=== PATIENT | female | born 1970 | race African-American/Black ===

== ENCOUNTER 2016-11-17 22:06 | Emergency (ER) | payer OTHER ==
[~2016-11-17] VITALS: Ht 165.1 cm; Wt 133.8 kg
[~2016-11-17 22:06] MED LIST: FUROSEMIDE20 M1 ORAL; NKM; TRUFORM COMPRE1 EACH MC
[2016-11-17 22:20] VITALS: BP 128/72
[2016-11-17 23:02] LABS: BASOPHILS % (AUTO) 1.5 % (0.0-2.0); EOSINOPHILS % (AUTO) 3.3 % (0.0-3.0); LYMPHOCYTES % (AUTO) 38.9 % (20.0-45.0); MEAN CORPUSCULAR HEMOGLOBIN 34.5 PG (27.0-31.0); MEAN CORPUSCULAR VOLUME 96 FL (80-99); MEAN PLATELET VOLUME 6.9 FL (6.5-10.1); MONOCYTES % (AUTO) 3.4 % (1.0-10.0); NEUTROPHILS % (AUTO) 53.1 % (45.0-75.0); PLATELET COUNT 313 K/UL (150-450); RED BLOOD COUNT 3.98 M/UL (4.20-5.40); WHITE BLOOD COUNT 7.7 K/UL (4.8-10.8)
[2016-11-17 23:03] LABS: APPEARANCE,URINE SLIGHTLY CLOUDY; KETONES,URINE NEGATIVE (NEGATIVE); LEUKOCYTE ESTERASE ,URINE 2+ (NEGATIVE); NITRITE,URINE NEGATIVE (NEGATIVE); PH,URINE 6 (4.5-8.0); PROTEIN,URINE 2+ (NEGATIVE); UROBILINOGEN,URINE NORMAL MG/DL (0.0-1.0)
[2016-11-17 23:10] LABS: ALANINE AMINOTRANSFERASE 10 U/L (3-33); ANION GAP 17 (5-15); ASPARTATE AMINO TRANSFERASE 16 U/L (5-40); CALCIUM 8.9 mg/dL (8.6-10.2); CARBON DIOXIDE 23 mEQ/L (20-30); CHLORIDE 96 mEQ/L (98-107); CREATININE 0.8 mg/dL (0.5-0.9); GLOMERULAR FILTRATION RATE > 60 mL/min (>60); HEMOLYSIS 9; LIPASE 28 U/L (< 60); POTASSIUM 3.5 mEQ/L (3.4-4.9); SODIUM 136 mEQ/L (135-145); TOTAL PROTEIN 7.3 g/dL (6.6-8.7)
[2016-11-17 23:19] LABS: RBC,URINE TNTC /HPF (0 - 2)
[2016-11-17 23:20] LABS: BACTERIA,URINE FEW /HPF; SQUAMOUS EPITHELIAL CELL,UR FEW /LPF (NONE/OCC); TRICHOMONAS,URINE FEW /HPF
[2016-11-18 00:20] VITALS: BP 131/75
[2016-11-18 01:56] LABS: TROPONIN I < 0.30 ng/mL (<=0.30)
--- NOTE | 2016-11-18 02:11 | Emergency Room Report ---
History of Present Illness General Chief Complaint: Abdominal Pain Source: Patient Present Illness HPI [id number] with "months" of bilateral lower extremity swelling. No assoc fever/ chills, redness, rash. Also c/o dysuria. No known CKD or history of CHF. Allergies: Coded Allergies: MORPHINE (Verified Allergy, Unknown, 03/05/16) PENICILLINS (Unverified Allergy, Unknown, 03/05/16) Uncoded Allergies: PENICILLIN (Allergy, Intermediate, 02/15/16) Patient History Past Medical History: none Past Surgical History: none Pertinent Family History: none Social History: Denies: alcohol use, drug use, smoking Last Menstrual Period: 11/17/16 Now: No : 5 Para: 4 Immunizations: UTD Reviewed Nursing Documentation: PMH: Agreed, PSxH: Agreed Nursing Documentation-PMH Hx Asthma: Yes Review of Systems All Other Systems: negative except mentioned in HPI Physical Exam Vital Signs Date Time Temp Pulse Resp B/P Pulse Ox O2 Delivery O2 Flow Rate FiO2 11/17/16 22:16 98.8 87 18 156/96 97 Room Air Sp02 EP Interpretation: reviewed, abnormal General Appearance: normal inspection, well appearing, no apparent distress, alert, GCS 15, non-toxic, obese Head: normocephalic Eyes: bilateral eye EOMI, bilateral eye PERRL ENT: normal ENT inspection, hearing grossly normal, normal voice Neck: normal inspection, full range of motion, supple, no bony tend Respiratory: normal inspection, lungs clear, normal breath sounds, no rhonchi, no respiratory distress, no retraction, no accessory muscle use, no wheezing, speaking full sentences Cardiovascular #1: regular rate, rhythm, no edema Gastrointestinal: normal inspection, normal bowel sounds, non tender, soft, no guarding, no hernia Genitourinary: no CVA tenderness Musculoskeletal: normal inspection, back normal, normal range of motion, Tanya' s Sign negative, other - bilateral lower extremities: Non-pitting edema. No erythema. Bilateral calf swelling Neurologic: normal inspection, alert, oriented x3, responsive, quilt maker III-XII nml as tested, motor strength/tone normal, speech normal Psychiatric: normal inspection, judgement/insight normal, mood/affect normal Skin: normal inspection, normal color, no rash Lymphatic: normal inspection Medical Decision Making Diagnostic Impression: Primary Impression: Trichomonas infection Additional Impression: Localized swelling of both lower legs ER Course Labs: No leuks. H&h stable. No CKD. BNP and troponin 0. D-dimer 733 CXR: no congestion or PNA Bilateral doppler sono: No DVT. Left distal SFU unable to be compressed d/t pain but no echogenicity seen in vessel per tech. Incidental left sided Bakers cyst. Bilateral leg pain - Unlikely peripheral edema from CHF as BNP normal, kidney function normal. Not pitting. - No sign of cellulitis - No DVT - Possibly contributing is patient's obesity. Encouraged weight loss, healthy eating, exercise Trichomonas - Rx given for patient and for Discharged with recommended PMD followup Copy of labs provided Chest X-Ray Diagnostic Results EP Interpretation: Yes Findings: no consolidation, no effusion, no pneumothorax, no acute cardiopulmonary disease Number of Views: 1 Last Vital Signs Date Time Temp Pulse Resp B/P Pulse Ox O2 Delivery O2 Flow Rate FiO2 11/17/16 22:20 98.8 86 23 128/72 99 Room Air Status: improved Disposition: HOME, SELF-CARE Scripts Methocarbamol* (ROBAXIN-750*) 750 Mg Tablet 750 MG PO TID for For Pain, #30 TAB 0 Refills Prov: BIA KRUSE M.D. 11/18/16 Metronidazole* (FLAGYL*) 500 Mg Tablet 500 MG ORAL BID for 7 Days, #14 TAB Prov: BIA KRSUE M.D. 11/18/16 Metronidazole* (FLAGYL*) 500 Mg Tablet 500 MG ORAL BID for 7 Days, #14 TAB Prov: BIA KRUSE M.D. 11/18/16 Referrals: NOT CHOSEN JAIME/,REFERRING (PCP) BIA KRUSE M.D. Nov 18, 2016 02:11
[2016-11-18 02:12] LABS: CKMB < 1.5 ng/mL (< 3.8)
[2016-11-18 02:20] VITALS: BP 129/74
[2016-11-18] MEDS ORDERED: ROBAXIN-750750 MG PO (03:54)
[2016-11-18] MEDS ORDERED: FLAGYL500 MG ORAL (03:54)
[2016-11-18 04:14] VITALS: BP 133/73
[2016-11-18 04:15] VITALS: BP 133/73
--- NOTE | 2016-11-18 10:49 | Diagnostic Imaging Report ---
Indication: SOB Technique: One view of the chest Comparison: none Findings: Body habitus limits evaluation. The heart is borderline enlarged. The lungs and pleural spaces are probably clear. Impression: Borderline cardiomegaly. No definite acute process
--- NOTE | 2016-11-25 23:23 | Diagnostic Imaging Report ---
APPROVED REPORT CPT Code: 20658 Present Symptoms Comments: Pain Technically difficult study due to patient body habitus. Thigh area. BILATERAL: Imaging reveals a patent deep venous system bilaterally. There is no evidence of thrombus within the common femoral, right superficial femoral, popliteal or tibial segments. The greater saphenous veins are also within normal limits. Doppler indicates normal spontaneous flow within these segments. Distal left superficial femoral vein not well visualized. Incidental finding: Enlarged bakers cyst noted at the left popliteal vein level, measuring (4.5 cm x 2.7 cm).
== END 2016-11-18 04:15 | disposition home or self-care (01) ==
LOC: EMR 22:35
DX: A59.9 Trichomoniasis, unspecified (principal); M79.89 Other specified soft tissue disorders; J45.909 Unspecified asthma, uncomplicated; Z88.0 Allergy status to penicillin; Z88.6 Allergy status to analgesic agent
CPT/HCPCS: 36415; 71010; 80053; 81003; 81025; 82550; 82553; 83690; 83880; 84484; 85025; 85379; 93970; 99284

== ENCOUNTER 2017-02-22 10:29 | Emergency (ER) | payer MEDICAID, OTHER ==
[~2017-02-22] VITALS: Ht 165.1 cm; Wt 133.8 kg
[~2017-02-22 10:29] MED LIST changes: +FLAGYL500 MG ORAL; +ROBAXIN-750750 MG PO
[2017-02-22 11:32] LABS: BASOPHILS % (AUTO) 1.1 % (0.0-2.0); EOSINOPHILS % (AUTO) 4.9 % (0.0-3.0); LYMPHOCYTES % (AUTO) 35.3 % (20.0-45.0); MEAN CORPUSCULAR HEMOGLOBIN 31.5 PG (27.0-31.0); MEAN CORPUSCULAR HGB CONC 32.8 G/DL (32.0-36.0); MEAN CORPUSCULAR VOLUME 96 FL (80-99); MEAN PLATELET VOLUME 7.2 FL (6.5-10.1); MONOCYTES % (AUTO) 2.6 % (1.0-10.0); NEUTROPHILS % (AUTO) 56.1 % (45.0-75.0); PLATELET COUNT 369 K/UL (150-450); RED BLOOD COUNT 4.21 M/UL (4.20-5.40); RED CELL DISTRIBUTION WIDTH 11.5 % (11.6-14.8); WHITE BLOOD COUNT 6.3 K/UL (4.8-10.8)
[2017-02-22 11:37] LABS: INR 0.9 (0.9-1.1); PROTHROMBIN TIME 9.6 SEC (9.30-11.50)
[2017-02-22 11:43] LABS: ALANINE AMINOTRANSFERASE 10 U/L (3-33); ANION GAP 14 (5-15); ASPARTATE AMINO TRANSFERASE 14 U/L (5-40); CARBON DIOXIDE 24 mEQ/L (20-30); CHLORIDE 101 mEQ/L (98-107); CREATININE 0.7 mg/dL (0.5-0.9); GLOMERULAR FILTRATION RATE > 60 mL/min (>60); HEMOLYSIS 6; POTASSIUM 3.8 mEQ/L (3.4-4.9); SODIUM 139 mEQ/L (135-145); TOTAL PROTEIN 7.3 g/dL (6.6-8.7)
[2017-02-22 11:52] VITALS: BP 133/75
[2017-02-22 11:54] LABS: TROPONIN I < 0.30 ng/mL (<=0.30)
[2017-02-22 12:03] LABS: CKMB 1.6 ng/mL (< 3.8)
--- NOTE | 2017-02-22 12:41 | Diagnostic Imaging Report ---
Indication: Chest pain Comparison: 11/18/16 A single view chest radiograph was obtained. Findings: Cardiomediastinal appearance is within normal limits for age. Pulmonary vascularity is appropriate. The diaphragmatic contour is smooth and costophrenic angles are sharp. No pleural effusions are identified. The bones are unremarkable. Impression: No acute findings
[2017-02-22 12:58] VITALS: BP 141/79
--- NOTE | 2017-02-22 13:04 | Emergency Room Report ---
History of Present Illness General Chief Complaint: Chest Pain Source: Patient Present Illness HPI This patient presents with bilateral lower extremity swelling and chest pressure. Patient states that she has had lower extremity swelling for the past few weeks. She states it is progressively worsened. She does have a history of this. She states it waxes and wanes in severity. She has never been evaluated by a physician for this. She denies cough or congestion. She denies fever or chills. She denies abdominal pain. She has no other complaints. Allergies: Coded Allergies: MORPHINE (Verified Allergy, Unknown, 03/05/16) PENICILLINS (Unverified Allergy, Unknown, 03/05/16) Uncoded Allergies: PENICILLIN (Allergy, Intermediate, 02/15/16) Patient History Past Medical History: see triage record, asthma Social History: Denies: alcohol use, drug use, smoking Last Menstrual Period: 01/28/17 Reviewed Nursing Documentation: PMH: Agreed, PSxH: Agreed Nursing Documentation-PMH Past Medical History: No Stated History Hx Asthma: Yes Review of Systems All Other Systems: negative except mentioned in HPI Physical Exam Vital Signs Date Time Temp Pulse Resp B/P Pulse Ox O2 Delivery O2 Flow Rate FiO2 02/22/17 10:39 98.2 93 16 171/101 95 Room Air Sp02 EP Interpretation: reviewed, normal General Appearance: no apparent distress, alert, GCS 15, non-toxic Head: normocephalic, atraumatic Eyes: bilateral eye PERRL, bilateral eye normal inspection ENT: hearing grossly normal, normal pharynx, no angioedema, normal voice Neck: full range of motion, supple/symm/no masses Respiratory: chest non-tender, lungs clear, normal breath sounds, speaking full sentences Cardiovascular #1: regular rate, rhythm, no edema Gastrointestinal: normal bowel sounds, non tender, soft, non-distended, no guarding, no rebound Rectal: deferred Musculoskeletal: back normal, gait/station normal, normal range of motion, non- tender Neurologic: alert, oriented x3, responsive, motor strength/tone normal, sensory intact, speech normal Psychiatric: judgement/insight normal, memory normal, mood/affect normal, no suicidal/homicidal ideation Skin: normal color, no rash, warm/dry, well hydrated, other - BLE 2+ edema Medical Decision Making Diagnostic Impression: Primary Impression: Lymphedema ER Course This patient presents with lymphedema. There is evidence of cellulitis and I have low suspicion for bilateral lower extremity DVTs. She has had ongoing symptoms for many weeks. I will go ahead and set this patient on a diuretic. She is also instructed to see her primary care physician for further evaluation and treatment of her chronic lymphedema. This patient has nonspecific chest pressure that has been ongoing. Given the length of symptoms, this workup is very reassuring with negative cardiac enzymes , normal EKG, and normal chest x-ray. The patient is low risk and his symptoms are atypical for acute coronary syndrome. I have very low suspicion for PE, aortic dissection or pneumothorax based on history/physical, laboratory and radiologic workup. The patient was given close return precautions and followup instructions. Labs Test 02/22/17 11:10 White Blood Count 6.3 K/UL (4.8-10.8) Red Blood Count 4.21 M/UL (4.20-5.40) Hemoglobin 13.3 G/DL (12.0-16.0) Hematocrit 40.4 % (37.0-47.0) Mean Corpuscular Volume 96 FL (80-99) Mean Corpuscular Hemoglobin 31.5 PG (27.0-31.0) Mean Corpuscular Hemoglobin Concent 32.8 G/DL (32.0-36.0) Red Cell Distribution Width 11.5 % (11.6-14.8) Platelet Count 369 K/UL (150-450) Mean Platelet Volume 7.2 FL (6.5-10.1) Neutrophils (%) (Auto) 56.1 % (45.0-75.0) Lymphocytes (%) (Auto) 35.3 % (20.0-45.0) Monocytes (%) (Auto) 2.6 % (1.0-10.0) Eosinophils (%) (Auto) 4.9 % (0.0-3.0) Basophils (%) (Auto) 1.1 % (0.0-2.0) Prothrombin Time 9.6 SEC (9.30-11.50) Prothromb Time International Ratio 0.9 (0.9-1.1) Activated Partial Thromboplast Time 27 SEC (23-33) Sodium Level 139 mEQ/L (135-145) Potassium Level 3.8 mEQ/L (3.4-4.9) Chloride Level 101 mEQ/L (98-107) Carbon Dioxide Level 24 mEQ/L (20-30) Anion Gap 14 (5-15) Blood Urea Nitrogen 11 mg/dL (7-23) Creatinine 0.7 mg/dL (0.5-0.9) Estimat Glomerular Filtration Rate > 60 mL/min (>60) Glucose Level 165 mg/dL (74-106) Calcium Level 9.0 mg/dL (8.6-10.2) Total Bilirubin 0.3 mg/dL (0.0-1.2) Aspartate Amino Transf (AST/SGOT) 14 U/L (5-40) Alanine Aminotransferase (ALT/SGPT) 10 U/L (3-33) Alkaline Phosphatase 101 U/L (35-104) Total Creatine Kinase 98 U/L (26-140) Creatine Kinase MB 1.6 ng/mL (< 3.8) Creatine Kinase MB Relative Index 1.6 Troponin I < 0.30 ng/mL (<=0.30) Pro-B-Type Natriuretic Peptide 54 pg/mL (0-125) Total Protein 7.3 g/dL (6.6-8.7) Albumin 3.8 g/dL (3.5-5.2) Globulin 3.5 g/dL Albumin/Globulin Ratio 1.0 (1.0-2.7) EKG Diagnostic Results Rate: normal Rhythm: NSR ST Segments: no acute changes Rhythm Strip Diag. Results EP Interpretation: yes Rate: 80's Rhythm: NSR, no PVC's, no ectopy Chest X-Ray Diagnostic Results Chest X-Ray Diagnostic Results : Chest X-Ray Ordered: Yes # of Views/Limited/Complete: 1 View Indication: Chest Pain EP Interpretation: Yes Interpretation: no consolidation, no effusion, no pneumothorax, no acute cardiopulmonary disease Impression: No acute disease Interpreting ER Provider: Benita Last Vital Signs Date Time Temp Pulse Resp B/P Pulse Ox O2 Delivery O2 Flow Rate FiO2 02/22/17 11:52 98.2 76 16 133/75 97 Room Air Status: improved Disposition: HOME, SELF-CARE Condition: Stable Referrals: NOT CHOSEN IPA/,REFERRING (PCP) DOROTHEA YO D.O. Feb 22, 2017 13:04
[2017-02-22] MEDS ORDERED: FUROSEMIDE20 M1 ORAL (13:06)
[2017-02-22 13:37] VITALS: BP 141/79
--- NOTE | 2017-02-23 16:35 | Cardiology Report ---
APPROVED REPORT EKG Measurement Heart [id number] Normal sinus rhythm Normal ECG
== END 2017-02-22 13:40 | disposition home or self-care (01) ==
LOC: EMR 11:15
DX: I89.0 Lymphedema, not elsewhere classified (principal); J45.909 Unspecified asthma, uncomplicated; Z88.6 Allergy status to analgesic agent; Z88.0 Allergy status to penicillin
CPT/HCPCS: 36415; 71010; 80053; 82550; 82553; 83880; 84484; 85025; 85610; 85730; 93005; 99283

== ENCOUNTER 2017-04-08 15:40 | Emergency (ER) | payer MEDICAID, OTHER ==
[~2017-04-08] VITALS: Ht 165.1 cm; Wt 140.6 kg
[2017-04-08] MEDS ORDERED: VENTOLIN HFA18 GM INH (15:59)
[2017-04-08] MEDS ORDERED: PANTOPRAZOLE SO20 MG ORAL (15:59)
[2017-04-08 16:44] LABS: BASOPHILS % (AUTO) 2.9 % (0.0-2.0); EOSINOPHILS % (AUTO) 2.8 % (0.0-3.0); MEAN CORPUSCULAR HEMOGLOBIN 33.3 PG (27.0-31.0); MEAN CORPUSCULAR HGB CONC 35.1 G/DL (32.0-36.0); MEAN CORPUSCULAR VOLUME 95 FL (80-99); MEAN PLATELET VOLUME 6.5 FL (6.5-10.1); MONOCYTES % (AUTO) 4.5 % (1.0-10.0); NEUTROPHILS % (AUTO) 47.8 % (45.0-75.0); PLATELET COUNT 353 K/UL (150-450); RED BLOOD COUNT 3.86 M/UL (4.20-5.40); WHITE BLOOD COUNT 8.8 K/UL (4.8-10.8)
[2017-04-08 16:59] LABS: ALANINE AMINOTRANSFERASE 13 U/L (3-33); ANION GAP 13 (5-15); ASPARTATE AMINO TRANSFERASE 15 U/L (5-40); CARBON DIOXIDE 24 mEQ/L (20-30); CHLORIDE 102 mEQ/L (98-107); CREATININE 0.9 mg/dL (0.5-0.9); GLOMERULAR FILTRATION RATE > 60 mL/min (>60); HEMOLYSIS 24; LIPASE 18 U/L (< 60); POTASSIUM 3.6 mEQ/L (3.4-4.9); SODIUM 139 mEQ/L (135-145); TOTAL PROTEIN 7.4 g/dL (6.6-8.7)
[2017-04-08] MEDS ORDERED: Ketorolac 30mg Inj IV ONE (17:15)
[2017-04-08 18:26] VITALS: BP 132/84
[2017-04-08] MEDS ORDERED: TRAMADOL HCL50 MG ORAL (18:38)
[2017-04-08] MEDS ORDERED: DIPHENHYDRAMINE25 M1 ORAL (18:38)
[2017-04-08 18:49] VITALS: BP 132/84
--- NOTE | 2017-04-08 22:39 | Emergency Room Report ---
History of Present Illness General Chief Complaint: Abdominal Pain Source: Patient Present Illness HPI 46-year-old female presents ED complaining of abdominal pain. Started a few hours prior to arrival. Pain is left-sided, sharp, 9/10, nonradiating. Denies nausea or vomiting. Patient states she has history of hernia. Believes that it has "ripped". Denies fevers or chills. No other aggravating relieving factors. Denies any other associated symptoms Allergies: Coded Allergies: MORPHINE (Verified Allergy, Unknown, 03/05/16) PENICILLINS (Unverified Allergy, Unknown, 03/05/16) Uncoded Allergies: PENICILLIN (Allergy, Intermediate, 02/15/16) Patient History Past Medical History: DM, asthma Past Surgical History: none Pertinent Family History: none Social History: Denies: smoking, alcohol use, drug use Last Menstrual Period: 04/08/17 Now: No : 4 Para: 4 Immunizations: UTD Reviewed Nursing Documentation: PMH: Agreed, PSxH: Agreed Nursing Documentation-PMH Hx Asthma: Yes Hx Diabetes: Yes - pre- diabetic Review of Systems All Other Systems: negative except mentioned in HPI Physical Exam Vital Signs Date Time Temp Pulse Resp B/P (MAP) Pulse Ox O2 Delivery O2 Flow Rate FiO2 04/08/17 15:52 98.6 87 26 128/82 96 Room Air Sp02 EP Interpretation: reviewed, normal General Appearance: no apparent distress, alert, GCS 15, non-toxic, obese Head: normocephalic Eyes: bilateral eye normal inspection, bilateral eye PERRL ENT: normal ENT inspection Neck: normal inspection Respiratory: chest non-tender, lungs clear, normal breath sounds, speaking full sentences Cardiovascular #1: regular rate, rhythm, no edema Gastrointestinal: normal bowel sounds, soft, non-distended, no guarding, no rebound, tenderness, hernia - periumbilical. reducible Rectal: deferred Genitourinary: no CVA tenderness Musculoskeletal: normal inspection Neurologic: alert, oriented x3, responsive, motor strength/tone normal, sensory intact, speech normal Psychiatric: normal inspection Skin: normal inspection Lymphatic: normal inspection Medical Decision Making Diagnostic Impression: Primary Impression: Hernia ER Course Hospital Course 46-year-old F presents to ED with abdominal pain Differential diagnosis includes-appendicitis, cholecystitis, small bowel obstruction, gastritis, Clinical course Patient placed on stretcher. After initial history and physical I ordered labs , IV fluids, pain medications and CT scan Labs - no leukocytosis, electrolytes ok, LFTs normal, UA unremarkable CT scan shows periumbilical hernia with fat. no signs of obstruction Upon reassessment, patient states pain has improved. Discussed findings with the patient. Given lack of obstruction with hernia been reducible patient can be discharged. Recommend outpatient followup with surgery I feel this is a highly complex case requiring extensive working including EKG/ Rhythm strip, Xray/CT/US, Blood/urine lab work, repeat exams while in ED, and administration of strong opiates/narcotics for pain control, admission to hospital or close patient follow up. Diagnosis -hernia Stable and discharged to home with prescription for tramadol. Followup with PMD /surgery. Return to ED if symptoms recur or worsen Labs Test 04/08/17 16:30 White Blood Count 8.8 K/UL (4.8-10.8) Red Blood Count 3.86 M/UL (4.20-5.40) Hemoglobin 12.9 G/DL (12.0-16.0) Hematocrit 36.6 % (37.0-47.0) Mean Corpuscular Volume 95 FL (80-99) Mean Corpuscular Hemoglobin 33.3 PG (27.0-31.0) Mean Corpuscular Hemoglobin Concent 35.1 G/DL (32.0-36.0) Red Cell Distribution Width 12.0 % (11.6-14.8) Platelet Count 353 K/UL (150-450) Mean Platelet Volume 6.5 FL (6.5-10.1) Neutrophils (%) (Auto) 47.8 % (45.0-75.0) Lymphocytes (%) (Auto) 42.0 % (20.0-45.0) Monocytes (%) (Auto) 4.5 % (1.0-10.0) Eosinophils (%) (Auto) 2.8 % (0.0-3.0) Basophils (%) (Auto) 2.9 % (0.0-2.0) Sodium Level 139 mEQ/L (135-145) Potassium Level 3.6 mEQ/L (3.4-4.9) Chloride Level 102 mEQ/L (98-107) Carbon Dioxide Level 24 mEQ/L (20-30) Anion Gap 13 (5-15) Blood Urea Nitrogen 15 mg/dL (7-23) Creatinine 0.9 mg/dL (0.5-0.9) Estimat Glomerular Filtration Rate > 60 mL/min (>60) Glucose Level 113 mg/dL (74-106) Calcium Level 9.0 mg/dL (8.6-10.2) Total Bilirubin 0.4 mg/dL (0.0-1.2) Aspartate Amino Transf (AST/SGOT) 15 U/L (5-40) Alanine Aminotransferase (ALT/SGPT) 13 U/L (3-33) Alkaline Phosphatase 118 U/L (35-104) Total Protein 7.4 g/dL (6.6-8.7) Albumin 3.8 g/dL (3.5-5.2) Globulin 3.6 g/dL Albumin/Globulin Ratio 1.0 (1.0-2.7) Lipase 18 U/L (< 60) Human Chorionic Gonadotropin, Qual Negative CT/MRI/US Diagnostic Results CT/MRI/US Diagnostic Results : Imaging Test Ordered: CT A/P Impression periumbilcal hernia with fat. no obstruction Last Vital Signs Date Time Temp Pulse Resp B/P (MAP) Pulse Ox O2 Delivery O2 Flow Rate FiO2 04/08/17 18:49 98.5 91 24 132/84 97 Room Air Status: improved Disposition: HOME, SELF-CARE Condition: Stable Scripts Diphenhydramine Hcl* (DIPHENHYDRAMINE HCL*) 25 Mg Capsule 25 MG ORAL Q6H Y for Itching, #30 CAP 0 Refills Prov: RUBIO BURNETT M.D. 04/08/17 Tramadol Hcl* (ULTRAM*) 50 Mg Tablet 50 MG ORAL Q6H Y for For Pain, #30 TAB 0 Refills Prov: RUBIO BURNETT M.D. 04/08/17 Patient Instructions: Hernia, Adult, [id number] RUBIO BURNETT M.D. Apr 08, 2017 22:39
--- NOTE | 2017-04-10 08:45 | Diagnostic Imaging Report ---
Clinical Indication: Left-sided abdominal pain x1 day Technique: No oral contrast utilized, per emergency room physician request IV administration nonionic contrast. Venous phase spiral acquisition obtained through the abdomen and pelvis. Multiplanar reconstructions were generated. Total dose length product 1529 mGycm. CTDIvol(s) Lasix mGy. Dose reduction achieved using automated exposure control Comparison: None Findings: There is slight image degradation due to image noise related to patient body habitus. Lack of enteric contrast limits assessment of the GI tract. The appendix is not clearly demonstrated, but there are no findings to suggest acute appendicitis. No small bowel distention. No free or loculated intraperitoneal air or fluid is evident. There is a small ventral hernia just inferior to emboli this. The distal esophagus, stomach, duodenum are unremarkable. The liver is diffusely hypoattenuating, consistent with fatty change. The gallbladder is surgically absent. The pancreas, spleen, adrenals, kidneys are unremarkable. No pelvic mass or adenopathy. No retroperitoneal or mesenteric mass or adenopathy. The included lung bases demonstrate some posterior dependent atelectatic changes. Subpleural irregular opacity at the left lung base most likely represents area of scarring or atelectasis. The bones demonstrate degenerative spondylosis changes. Impression: No acute abnormal Fatty liver Prior cholecystectomy. No biliary ductal dilatation Basilar dependent pulmonary atelectatic changes Degenerative spondylosis, small fat-containing ventral hernia incidentally noted This agrees with the preliminary interpretation provided overnight by [facility] teleradiology service. The CT scanner at [facility] is accredited by the [employer] and the scans are performed using protocols designed to limit radiation exposure to as low as reasonably achievable to attain images of sufficient resolution adequate for diagnostic evaluation.
== END 2017-04-08 18:51 | disposition home or self-care (01) ==
LOC: EMR 17:00
DX: K42.9 Umbilical hernia without obstruction or gangrene (principal); J45.909 Unspecified asthma, uncomplicated; K76.0 Fatty (change of) liver, not elsewhere classified; Z88.0 Allergy status to penicillin; Z88.6 Allergy status to analgesic agent; Z90.49 Acquired absence of other specified parts of digestive tract
CPT/HCPCS: 36415; 74177; 80053; 83690; 84703; 85025; 96361; 96374; 99284; J1885; J7040; Q9967

== ENCOUNTER 2017-07-01 13:00 | Inpatient (IN) | payer OTHER ==
[~2017-07-01] VITALS: Ht 165.1 cm; Wt 186.4 kg
[~2017-07-01 13:00] MED LIST changes: +DIPHENHYDRAMINE25 M1 ORAL; +PANTOPRAZOLE SO20 MG ORAL; +TRAMADOL HCL50 MG ORAL; +VENTOLIN HFA18 GM INH
[2017-07-01 13:26] VITALS: BP 150/96
--- NOTE | 2017-07-01 13:41 | Emergency Room Report ---
History of Present Illness General Chief Complaint: Upper Respiratory Illness Source: Patient Present Illness HPI Patient has with complaints of chest pain or shortness of breath Initially main complaint is cough Ongoing for the past one month However patient also complains of chest heaviness Denies any recent travel patient was previously here with bilateral lower extremity ultrasound which was negative for DVT that was over one year ago Patient complains of exertional dyspnea Denies any vomiting or diarrhea denies any fevers or chills Denies any recent travel Allergies: Coded Allergies: MORPHINE (Verified Allergy, Unknown, 03/05/16) PENICILLINS (Unverified Allergy, Unknown, 03/05/16) Uncoded Allergies: PENICILLIN (Allergy, Intermediate, 02/15/16) Patient History Past Medical History: see triage record Pertinent Family History: none Reviewed Nursing Documentation: PMH: Agreed, PSxH: Agreed Nursing Documentation-PMH Hx Cardiac Problems: No Hx Hypertension: No Hx Pacemaker: No Hx Asthma: Yes Hx COPD: No Hx Diabetes: No Hx Cancer: No Hx Gastrointestinal Problems: No Hx Dialysis: No History Of Psychiatric Problem: No Hx Neurological Problems: No Hx Cerebrovascular Accident: No Hx Seizures: No Review of Systems All Other Systems: negative except mentioned in HPI Physical Exam Vital Signs Date Time Temp Pulse Resp B/P (MAP) Pulse Ox O2 Delivery O2 Flow Rate FiO2 07/01/17 13:09 98.1 98 22 148/97 94 Room Air 07/01/17 13:26 96 Sp02 EP Interpretation: reviewed, normal General Appearance: mild distress - appears short of breath Head: normocephalic, atraumatic Eyes: bilateral eye PERRL, bilateral eye EOMI ENT: hearing grossly normal, normal pharynx, TMs + canals normal, uvula midline Neck: full range of motion, supple, no meningismus, no bony tend Respiratory: no rhonchi, no respiratory distress, no retraction, no accessory muscle use, wheezing Cardiovascular #1: normal peripheral pulses, regular rate, rhythm, no edema, no gallop, no JVD, no murmur Gastrointestinal: normal bowel sounds, non tender, soft, no mass, no organomegaly, non-distended, no guarding, no hernia, no pulsatile mass, no rebound Genitourinary: no CVA tenderness Musculoskeletal: normal inspection Neurologic: oriented x3, responsive, sheep shearer III-XII nml as tested, motor strength/ tone normal, sensory intact Psychiatric: mood/affect normal Skin: normal color, no rash, warm/dry, palpation normal Lymphatic: normal inspection, no adenopathy Medical Decision Making Diagnostic Impression: Primary Impression: Asthma exacerbation Additional Impression: Dyspnea ER Course Patient is a fairly complex patient with multiple differential to consideration including but not limited to cardiac cardiopulmonary and vascular emergencies Patient has had a previous elevated d-dimer given complaints of chest discomfort and shortness of breath CT imaging is being obtained Patient has done somewhat better however continued to complain of some shortness of breath she appears somewhat uncomfortable CT imaging did not show any obvious acute disease Patient's x-ray does show some cardiomegaly And at this time admitted for further care Rhythm Strip Diag. Results EP Interpretation: yes Rate: 88 Rhythm: NSR, no PVC's, no ectopy Chest X-Ray Diagnostic Results Chest X-Ray Diagnostic Results : Chest X-Ray Ordered: Yes # of Views/Limited/Complete: 1 View Indication: Shortness of Breath EP Interpretation: Yes Interpretation: no consolidation, no effusion, no pneumothorax, other - cm Impression: Other - cm Electronically Signed by: Carlos Delgado, DO CT/MRI/US Diagnostic Results CT/MRI/US Diagnostic Results : Impression CT a chest: No obvious PE Last Vital Signs Date Time Temp Pulse Resp B/P (MAP) Pulse Ox O2 Delivery O2 Flow Rate FiO2 07/01/17 13:26 97.6 94 22 150/96 96 Room Air 07/01/17 13:26 96 Status: improved Disposition: ADMITTED INPATIENT Condition: Serious CARLOS DELGADO D.O. Jul 01, 2017 13:41
[2017-07-01 14:33] LABS: BASOPHILS % (AUTO) 1.6 % (0.0-2.0); EOSINOPHILS % (AUTO) 8.3 % (0.0-3.0); LYMPHOCYTES % (AUTO) 30.1 % (20.0-45.0); MEAN CORPUSCULAR HEMOGLOBIN 31.3 PG (27.0-31.0); MEAN CORPUSCULAR HGB CONC 32.9 G/DL (32.0-36.0); MEAN CORPUSCULAR VOLUME 95 FL (80-99); MEAN PLATELET VOLUME 6.5 FL (6.5-10.1); MONOCYTES % (AUTO) 5.4 % (1.0-10.0); NEUTROPHILS % (AUTO) 54.6 % (45.0-75.0); PLATELET COUNT 353 K/UL (150-450); RED BLOOD COUNT 4.19 M/UL (4.20-5.40); RED CELL DISTRIBUTION WIDTH 11.5 % (11.6-14.8); WHITE BLOOD COUNT 7.2 K/UL (4.8-10.8)
[2017-07-01 14:50] LABS: ANION GAP 8 mmol/L (5-15); CALCIUM 9.1 MG/DL (8.5-10.1); CARBON DIOXIDE 26 MMOL/L (21-32); CHLORIDE 104 MMOL/L (98-107); CREATININE 0.9 MG/DL (0.55-1.30); GLOMERULAR FILTRATION RATE > 60 mL/min (>60); SODIUM 138 MMOL/L (136-145)
[2017-07-01 15:05] LABS: ALANINE AMINOTRANSFERASE 22 U/L (12-78); ALBUMIN/GLOBULIN RATIO 0.7 (1.0-2.7); ASPARTATE AMINO TRANSFERASE 21 U/L (15-37); TOTAL PROTEIN 7.9 G/DL (6.4-8.2)
[2017-07-01 15:30] VITALS: BP 105/48
[2017-07-01] MEDS ORDERED: Albuterol/Ipratropium 3ml neb HHN ONE (15:45)
[2017-07-01] MEDS ORDERED: Dexamethasone 4mg/ml vial IVP ONE (16:00)
[2017-07-01 18:00] VITALS: BP 109/64
[2017-07-01 19:45] VITALS: BP 122/79
[2017-07-01] MEDS ORDERED: cefTRIAXone 1 GM in D5W 55 ML IVPB SCH (22:15)
[2017-07-01] MEDS ORDERED: Albuterol/Ipratropium 3ml neb HHN PRN (22:15)
[2017-07-01] MEDS ORDERED: Zolpidem 5mg tab ORAL PRN (22:15)
[2017-07-01] MEDS ORDERED: Mylanta II UD 30ml ORAL PRN (22:15)
[2017-07-02 00:30] VITALS: BP 147/59
[2017-07-02] MEDS ORDERED: PROTONIX20 MG ORAL (01:53)
[2017-07-02] MEDS ORDERED: ALBUTEROL SULF8.5 GM INH (01:53)
[2017-07-02] MEDS: Albuterol/Ipratropium 3ml neb HHN SCH ×6 (02:34→23:00)
[2017-07-02 04:00] VITALS: BP 122/52
[2017-07-02] MEDS: Solu-MEDROL 40mg Inj IVP SCH ×3 (05:52→22:14)
--- NOTE | 2017-07-02 07:58 | History & Physical ---
History and Physical History & Physicial 46 year old Patient has with complaints of shortness of breath, cough, and chest tightness. Patient with exertional dyspnea Allergies: MORPHINE (Verified Allergy, Unknown, 03/05/16) PENICILLINS (Unverified Allergy, Unknown, 03/05/16) Past Medical History: negative Pertinent Family History: none Reviewed of systems: negative Physical exam WDWN NAD reduced breath sounds bilaterally without rhonchi or wheeze [id number] without MRG NABS nontender no HSM no CCE nonfocal Laboratory Tests Test 07/01/17 14:05 White Blood Count 7.2 K/UL (4.8-10.8) Red Blood Count 4.19 M/UL (4.20-5.40) L Hemoglobin 13.1 G/DL (12.0-16.0) Hematocrit 39.8 % (37.0-47.0) Mean Corpuscular Volume 95 FL (80-99) Mean Corpuscular Hemoglobin 31.3 PG (27.0-31.0) H Mean Corpuscular Hemoglobin Concent 32.9 G/DL (32.0-36.0) Red Cell Distribution Width 11.5 % (11.6-14.8) L Platelet Count 353 K/UL (150-450) Mean Platelet Volume 6.5 FL (6.5-10.1) Neutrophils (%) (Auto) 54.6 % (45.0-75.0) Lymphocytes (%) (Auto) 30.1 % (20.0-45.0) Monocytes (%) (Auto) 5.4 % (1.0-10.0) Eosinophils (%) (Auto) 8.3 % (0.0-3.0) H Basophils (%) (Auto) 1.6 % (0.0-2.0) Urine HCG, Qualitative Negative Sodium Level 138 MMOL/L (136-145) Potassium Level 4.0 MMOL/L (3.5-5.1) Chloride Level 104 MMOL/L (98-107) Carbon Dioxide Level 26 MMOL/L (21-32) Anion Gap 8 mmol/L (5-15) Blood Urea Nitrogen 15 mg/dL (7-18) Creatinine 0.9 MG/DL (0.55-1.30) Estimat Glomerular Filtration Rate > 60 mL/min (>60) Glucose Level 116 MG/DL (74-106) H Calcium Level 9.1 MG/DL (8.5-10.1) Total Bilirubin 0.3 MG/DL (0.2-1.0) Aspartate Amino Transf (AST/SGOT) 21 U/L (15-37) Alanine Aminotransferase (ALT/SGPT) 22 U/L (12-78) Alkaline Phosphatase 117 U/L (46-116) H Total Creatine Kinase 346 U/L (26-308) H Creatine Kinase MB 6.0 NG/ML (0.0-3.6) H Creatine Kinase MB Relative Index 1.7 Troponin I 0.000 ng/mL (0.000-0.056) Pro-B-Type Natriuretic Peptide 39 pg/mL (0-125) Total Protein 7.9 G/DL (6.4-8.2) Albumin 3.3 G/DL (3.4-5.0) L Globulin 4.6 g/dL Albumin/Globulin Ratio 0.7 (1.0-2.7) L IMPRESSION bronchospasm possible URI cough PLAN respiratory care IV steroids dc planning inhaled steroids follow up with KELSEY ALVARADO Jul 02, 2017 07:58
[2017-07-02 08:00] VITALS: BP 113/60
[2017-07-02] MEDS: Levofloxacin 500mg tab ORAL SCH (08:59)
[2017-07-02] MEDS: Heparin 5000 units/ml inj SUBQ SCH ×2 (09:01→21:05)
--- NOTE | 2017-07-02 10:44 | Diagnostic Imaging Report ---
Indication: Shortness of breath Technique: CT pulmonary angiogram performed utilizing automated exposure control with intravenous contrast. Axial, sagittal and coronal reconstructions were obtained. 3-D volumetric reconstructions were also performed. CT dose: Total DLP 1894 mGycm; CTDI vol 49.7 mGy Comparison: Chest x-ray from earlier the same day Findings: There is suboptimal opacification of distal pulmonary arteries but no central pulmonary embolus is identified. There is no aortic dissection. The heart is normal in size. There is no focal consolidation. No pericardial or pleural effusions are seen. There is diffuse fatty infiltration of the liver. Cholecystectomy clips are seen. There is a tiny hiatal hernia. Degenerative changes of the spine are present. Impression: Suboptimal opacification of the distal pulmonary arteries limiting evaluation but no central pulmonary embolus. Clinical correlation recommended. Cholecystectomy. Hepatic steatosis. The CT scanner at [facility] is accredited by the [employer] and the scans are performed using protocols designed to limit radiation exposure to as low as reasonably achievable to attain images of sufficient resolution adequate for diagnostic evaluation.
--- NOTE | 2017-07-02 10:51 | Diagnostic Imaging Report ---
Indication: Shortness of breath Technique: XRAY CHEST 1 V Comparison: None Findings: The cardiomediastinal silhouette is within normal limits. There is no focal consolidation, pneumothorax or pleural effusion. Osseous structures demonstrate no acute abnormality. Impression: No acute cardiopulmonary disease.
[2017-07-02 12:00] VITALS: BP 139/73
[2017-07-02 16:00] VITALS: BP 125/56
[2017-07-02 19:59] VITALS: BP 121/68
[2017-07-02] MEDS ORDERED: traMADol 50mg tab ORAL PRN (23:00)
[2017-07-03] VITALS: BP 123/78
[2017-07-03] MEDS: Albuterol/Ipratropium 3ml neb HHN SCH ×3 (03:00→11:40)
[2017-07-03 04:00] VITALS: BP 119/61
[2017-07-03] MEDS: Solu-MEDROL 40mg Inj IVP SCH (05:49)
--- NOTE | 2017-07-03 07:41 | General Progress Note ---
Assessment/Plan Assessment/Plan IMPRESSION bronchospasm possible URI cough PLAN respiratory care medrol fermin zpak inhaled steroids with LABA follow up with PMD Subjective Allergies: Coded Allergies: MORPHINE (Verified Allergy, Unknown, 03/05/16) PENICILLINS (Unverified Allergy, Unknown, 03/05/16) Uncoded Allergies: PENICILLIN (Allergy, Intermediate, 02/15/16) Subjective improved cultures negative Objective Last 24 Hour Vital Signs Date Time Temp Pulse Resp B/P (MAP) Pulse Ox O2 Delivery O2 Flow Rate FiO2 07/03/17 04:00 97.0 81 20 119/61 98 Nasal Cannula 2.0 28 07/03/17 04:00 88 07/03/17 03:48 Nasal Cannula 2.0 07/03/17 03:48 Nasal Cannula 2.0 07/03/17 00:00 Nasal Cannula 2.0 07/03/17 00:00 92 07/03/17 00:00 97.7 97 18 123/78 96 07/02/17 23:39 Nasal Cannula 2.0 07/02/17 23:39 Nasal Cannula 2.0 07/02/17 20:00 107 07/02/17 19:59 97.5 100 20 121/68 95 Nasal Cannula 2.0 07/02/17 19:52 98 20 98 Nasal Cannula 2.0 28 07/02/17 19:38 Nasal Cannula 2.0 28 07/02/17 19:38 98 Nasal Cannula 2.0 28 07/02/17 19:37 98 21 97 Nasal Cannula 2.0 96 07/02/17 18:53 97.9 07/02/17 16:00 108 07/02/17 16:00 97.9 109 19 125/56 95 Room Air 07/02/17 15:11 97 16 98 Nasal Cannula 2.0 28 07/02/17 15:02 95 20 97 Nasal Cannula 2.0 96 07/02/17 12:00 103 07/02/17 12:00 97.9 103 22 139/73 95 Nasal Cannula 2.0 07/02/17 10:46 Nasal Cannula 2.0 28 07/02/17 10:45 Nasal Cannula 2.0 07/02/17 08:00 98 07/02/17 08:00 97.8 98 20 113/60 97 Nasal Cannula 2.0 Height (Feet): 5 Height (Inches): 5.00 Weight (Pounds): 411 Objective WDWN NAD clear breath sounds bilaterally without rhonchi or wheeze [id number] without MRG NABS nontender no HSM no CCE nonfocal KELSEY HARE Jul 03, 2017 07:41
[2017-07-03 08:00] VITALS: BP 127/76
[2017-07-03] MEDS: Heparin 5000 units/ml inj SUBQ SCH (11:09)
[2017-07-03] MEDS: Levofloxacin 500mg tab ORAL SCH (11:10)
[2017-07-03 11:39] VITALS: BP 111/72
--- NOTE | 2017-07-03 15:28 | Cardiology Report ---
APPROVED REPORT EKG Measurement Heart [id number] AR [id number] Sinus tachycardia Possible Left atrial enlargement Borderline ECG
--- NOTE | 2017-07-03 15:35 | Cardiology Report ---
APPROVED REPORT EKG Measurement Heart [id number] LA [id number] [id number] Normal sinus rhythm Cannot rule out Anterior infarct, age undetermined Abnormal ECG
--- NOTE | 2017-07-04 14:39 | Discharge Summary ---
Discharge Summary Hospital Course Date of Admission Jul 01, 2017 at 18:06 Date of Discharge Jul 03, 2017 at 12:35 Admitting Diagnosis ASTHMA EXACERBATION HPI Lenora Blackman is a 46 year old female who was admitted on Jul 01, 2017 at 18 :06 for [place] Exacerbation Hospital Course dc summary #[id number] Discharge Medications Continued Medications: Albuterol Sulfate* (Albuterol Sulfate Mdi*) 8.5 Gm Hfa.aer.ad 2 PUFF INH Q4H, #1 INH 0 Refills Pantoprazole Sodium (Protonix) 20 Mg Tablet.dr 20 MG ORAL DAILY, TAB Discharge Condition Upon Discharge: stable Discharge Disposition Patient was discharged to Home (01) Discharge Diagnoses: Discharge Instructions Discharge Instructions Special Instructions I have been assigned to complete a D/C Summary on this account. I was not involved in the patient management Carolyn Arnett NP ([place]) Jul 04, 2017 14:39
--- NOTE | 2017-07-04 16:45 | Discharge Summary 2 SIG ---
DATE OF ADMISSION: 07/01/2017 DATE OF DISCHARGE: 07/03/2017 REASON FOR ADMISSION: 46-year-old female with past medical history of asthma, presented to emergency department with a complaint of cough, chest pain, shortness of breath. Symptoms were ongoing for one month. The patient was complaining of chest heaviness. She denied recent travel plans. She recently had duplex of bilateral lower extremities, which was negative for DVT. The patient complained of exertional dyspnea. Denied chest pain. Denied fever, chills, diarrhea, or vomiting. Workup in the emergency room revealed stable vital signs. Pulse oximetry was stable on room air. Chest x-ray with evidence of cardiomegaly. CTA of the chest revealed no evidence of PE. Troponin was negative. EKG revealed sinus rhythm. No acute ischemic changes. The patient was admitted for management of possible asthma exacerbation and dyspnea. HOSPITAL STAY: The patient was admitted. The patient was started on the IV steroids, which were gradually tapered. The patient was started on supplemental oxygen, which was titrated to keep pulse oximetry above 92%. Pulmonary toilet provided via handheld nebulization with bronchodilators. The patient was on empiric antibiotics. Sputum culture was not collected, but blood culture were preliminary negative. DVT and GI prophylaxis provided. The patient clinically improved and was stable for discharge home on Medrol Dosepak, Z-Mario, long-acting beta-agonist inhaler as well as the rescue inhaler with albuterol. The patient was recommended to have a follow up with the primary medical doctor/disposal worker and schedule pulmonary function test. FINAL DIAGNOSES: 1. Bronchospasm. 2. Possible upper respiratory infection. 3. Possible asthma exacerbation. 4. Cough. DISCHARGE MEDICATIONS: Scripts provided upon discharge. DISCHARGE INSTRUCTIONS: The patient was discharged home. FOLLOWUP: Follow up with the primary medical doctor/disposal worker for PFT. Cholo Hager M.D. I have been assigned to dictate discharge summary on this account and I was not involved in the patient's management. Carolyn AguirreLong Island Jewish Medical CenterJen Clarke DR: EDILSON JOB#: [id number] CC: MARI
== END 2017-07-03 12:35 | disposition home or self-care (01) | DRG 141 ==
LOC: EMR 13:38 → 2E 18:06 → EDBEDREQ 19:05
DX: J45.901 Unspecified asthma with (acute) exacerbation (principal); J06.9 Acute upper respiratory infection, unspecified
CPT/HCPCS: 36415; 71010; 71275; 80053; 81025; 82550; 82553; 83880; 84484; 85025; 87040; 93005; 94640; 94664; 94760; 99285; J7620

== ENCOUNTER 2017-07-16 11:05 | Inpatient (IN) | payer OTHER ==
[~2017-07-16] VITALS: Ht 165.1 cm; Wt 182.8 kg
[~2017-07-16 11:05] MED LIST changes: +ALBUTEROL SULF8.5 GM INH; +PROTONIX20 MG ORAL
[2017-07-16] MEDS ORDERED: VITAMIN D1000 UNI1 ORAL (11:16)
[2017-07-16] MEDS ORDERED: IRON18 M1 PO (11:16)
[2017-07-16 11:23] VITALS: BP 136/94
[2017-07-16] MEDS ORDERED: Azithromycin 500 MG in NS 275 ML IV ONE (11:30)
[2017-07-16] MEDS ORDERED: Hydromorphone 0.5mg/0.5ml inj IVP ONE (11:30)
[2017-07-16] MEDS ORDERED: Ipratropium 0.02% Inh Soln 2.5ml UD HHN ONE (11:30)
[2017-07-16] MEDS ORDERED: Albuterol ud Inhalation HHN ONE (11:30)
[2017-07-16] MEDS ORDERED: Azithromycin 500mg Inj IV ONE (11:48)
[2017-07-16 12:37] LABS: BASOPHILS % (AUTO) 1.4 % (0.0-2.0); EOSINOPHILS % (AUTO) 7.1 % (0.0-3.0); LYMPHOCYTES % (AUTO) 24.7 % (20.0-45.0); MEAN CORPUSCULAR HEMOGLOBIN 30.8 PG (27.0-31.0); MEAN CORPUSCULAR HGB CONC 32.1 G/DL (32.0-36.0); MEAN CORPUSCULAR VOLUME 96 FL (80-99); MEAN PLATELET VOLUME 6.8 FL (6.5-10.1); MONOCYTES % (AUTO) 4.5 % (1.0-10.0); NEUTROPHILS % (AUTO) 62.3 % (45.0-75.0); PLATELET COUNT 361 K/UL (150-450); RED BLOOD COUNT 4.28 M/UL (4.20-5.40); RED CELL DISTRIBUTION WIDTH 11.4 % (11.6-14.8); WHITE BLOOD COUNT 8.2 K/UL (4.8-10.8)
[2017-07-16] MEDS ORDERED: HYDROmorphone 1mg/ml Carpuject IVP ONE (12:45)
[2017-07-16 12:48] LABS: ANION GAP 9 mmol/L (5-15); CALCIUM 9.2 MG/DL (8.5-10.1); CARBON DIOXIDE 26 MMOL/L (21-32); CHLORIDE 101 MMOL/L (98-107); GLOMERULAR FILTRATION RATE > 60 mL/min (>60); POTASSIUM 3.8 MMOL/L (3.5-5.1); SODIUM 135 MMOL/L (136-145)
[2017-07-16 12:59] LABS: ALANINE AMINOTRANSFERASE 28 U/L (12-78); ALBUMIN/GLOBULIN RATIO 0.7 (1.0-2.7); ASPARTATE AMINO TRANSFERASE 21 U/L (15-37); TOTAL PROTEIN 7.5 G/DL (6.4-8.2)
[2017-07-16 13:00] LABS: REFLEX LACTIC ACID YES OR NO YES
[2017-07-16] MEDS ORDERED: fentaNYL 100 mcg/2 mL IV ONE (14:00)
--- NOTE | 2017-07-16 15:00 | Emergency Room Report ---
History of Present Illness General Chief Complaint: Chest Pain Source: Patient Present Illness HPI The patient presents with sternal chest pain. This been on for a few days. She 's heard herself wheezing. She does have a history of asthma. She's felt feverish. Has a mildly productive cough. Some yellow phlegm. Some calf tenderness. Pain in chest is 10/10. No meds taken. Pleuritic and also constant, sharp and some pressure. Not radiate. No NVD, dysuria, rashes. June she had similar presentation but was considered asthma exacerbation. Patient is overweight. H/O cardiomegaly. LNMP 12/ and normal. Allergies: Coded Allergies: MORPHINE (Verified Allergy, Unknown, 03/05/16) PENICILLINS (Unverified Allergy, Unknown, 03/05/16) Uncoded Allergies: PENICILLIN (Allergy, Intermediate, 02/15/16) Patient History Past Medical History: see triage record Social History: Denies: smoking Social History Narrative Last Menstrual Period: 07/12/17 Now: No Reviewed Nursing Documentation: PMH: Agreed, PSxH: Agreed Nursing Documentation-PMH Hx Hypertension: No Hx Pacemaker: No Hx Asthma: Yes Hx COPD: No Hx Diabetes: No Hx Cancer: No Hx Gastrointestinal Problems: No Hx Dialysis: No Hx Neurological Problems: No Hx Cerebrovascular Accident: No Hx Seizures: No Review of Systems All Other Systems: negative except mentioned in HPI Physical Exam Vital Signs Date Time Temp Pulse Resp B/P (MAP) Pulse Ox O2 Delivery O2 Flow Rate FiO2 07/16/17 11:10 97.9 100 21 136/94 96 Room Air Sp02 EP Interpretation: reviewed, abnormal - low O2 sat as interpreted by me General Appearance: well appearing, no apparent distress, GCS 15, obese Head: normocephalic Eyes: bilateral eye normal inspection, bilateral eye PERRL ENT: moist mucus membranes Neck: supple Respiratory: wheezing, expiration, other - sternomanubrial Cardiovascular #1: regular rate, rhythm, no edema Cardiovascular #2: 2+ radial (R) Gastrointestinal: normal inspection, normal bowel sounds, non tender, no mass, non-distended Musculoskeletal: back normal, gait/station normal, normal range of motion, no calf tenderness Neurologic: alert, oriented x3, motor strength/tone normal, DTRs symmetric, sensory intact, normal gait, speech normal Psychiatric: depressed affect Skin: normal inspection, warm/dry Medical Decision Making Diagnostic Impression: Primary Impression: Chest pain Qualified Codes: R07.9 - Chest pain, unspecified Additional Impressions: Elevated lactic acid level Costochondral chest pain Asthma Qualified Codes: J45.41 - Moderate persistent asthma with (acute) exacerbation Physical tolerance to opiate drug ER Course Patient presents with severe sternal chest pain and wheezing. DDx; asthma, costochondritis, PNA, PE, bronchitis, pneumothorax, ACS amongst others. Exam against pneumo. Evaluation with EKG, CXR, labs. Treatment with albuterol and analgesia with IV hydration. EKG without injury. CXR no infiltrates. Labs with normal WBC, eosinophilia, elevated lactate. Antibiotics begun for h/o productive phlegm in face of bronchospasm. Patient not helped with repeat doses of dilaudid. Rated 9/10 pain. Opiate tolerance noted. Fentanyl given. Some relief with this. Elevated lactic acid of concern. CTA ordered. Due to pain and elevated lactic acid, admit telemetry. Dr Hager requests admit to panel physician as she is not his patient. Admit tele Dr. Madrid. CTA signed out to Dr. Brenner. Laboratory Tests Test 07/16/17 11:55 07/16/17 14:40 White Blood Count 8.2 K/UL (4.8-10.8) Red Blood Count 4.28 M/UL (4.20-5.40) Hemoglobin 13.2 G/DL (12.0-16.0) Hematocrit 41.0 % (37.0-47.0) Mean Corpuscular Volume 96 FL (80-99) Mean Corpuscular Hemoglobin 30.8 PG (27.0-31.0) Mean Corpuscular Hemoglobin Concent 32.1 G/DL (32.0-36.0) Red Cell Distribution Width 11.4 % (11.6-14.8) L Platelet Count 361 K/UL (150-450) Mean Platelet Volume 6.8 FL (6.5-10.1) Neutrophils (%) (Auto) 62.3 % (45.0-75.0) Lymphocytes (%) (Auto) 24.7 % (20.0-45.0) Monocytes (%) (Auto) 4.5 % (1.0-10.0) Eosinophils (%) (Auto) 7.1 % (0.0-3.0) H Basophils (%) (Auto) 1.4 % (0.0-2.0) Prothrombin Time 10.0 SEC (9.30-11.50) Prothrombin Time INR 1.0 (0.9-1.1) PTT 24 SEC (23-33) Sodium Level 135 MMOL/L (136-145) L Potassium Level 3.8 MMOL/L (3.5-5.1) Chloride Level 101 MMOL/L (98-107) Carbon Dioxide Level 26 MMOL/L (21-32) Anion Gap 9 mmol/L (5-15) Blood Urea Nitrogen 11 mg/dL (7-18) Creatinine 1.0 MG/DL (0.55-1.30) Estimate Glomerular Filtration Rate > 60 mL/min (>60) Glucose Level 163 MG/DL (74-106) H Lactic Acid Level 3.50 mmol/L (0.66-2.22) H Calcium Level 9.2 MG/DL (8.5-10.1) Total Bilirubin 0.4 MG/DL (0.2-1.0) Aspartate Amino Transferase (AST) 21 U/L (15-37) Alanine Aminotransferase (ALT) 28 U/L (12-78) Alkaline Phosphatase 143 U/L (46-116) H Total Creatine Kinase 103 U/L (26-308) Pro-B-Type Natriuretic Peptide 27 pg/mL (0-125) Total Protein 7.5 G/DL (6.4-8.2) Albumin 3.0 G/DL (3.4-5.0) L Globulin 4.5 g/dL Albumin/Globulin Ratio 0.7 (1.0-2.7) L Urine Color Yellow Urine Appearance Slightly cloudy Urine pH 5 (4.5-8.0) Urine Specific [place] 1.025 (1.005-1.035) Urine Protein 1+ (NEGATIVE) H Urine Glucose (UA) Negative (NEGATIVE) Urine Ketones Negative (NEGATIVE) Urine Occult Blood 1+ (NEGATIVE) H Urine Nitrite Negative (NEGATIVE) Urine Bilirubin Negative (NEGATIVE) Urine Urobilinogen Normal MG/DL (0.0-1.0) Urine Leukocyte Esterase 1+ (NEGATIVE) H Urine RBC 2-4 /HPF (0 - 2) H Urine WBC 0-2 /HPF (0 - 2) Urine Squamous Epithelial Cells Occasional /LPF Urine Bacteria Few /HPF (NONE) Urine Mucus Few /LPF (NONE/OCC) H Microbiology Date/Time Source Procedure Growth Status 07/16/17 11:55 Nasal Nares Influenza Types A,B Antigen (DOMINIC) - Final Complete EKG Diagnostic Results Rate: tachycardiac ST Segments: no acute changes Rhythm Strip Diag. Results EP Interpretation: yes Rhythm: no PVC's, no ectopy, other - ST Chest X-Ray Diagnostic Results Chest X-Ray Diagnostic Results : Chest X-Ray Ordered: Yes # of Views/Limited/Complete: 1 View Indication: Chest Pain EP Interpretation: Yes Interpretation: no consolidation, no effusion, no pneumothorax Impression: No acute disease Electronically Signed by: Alfredo Baca MD CT/MRI/US Diagnostic Results CT/MRI/US Diagnostic Results : Imaging Test Ordered: CTA Last Vital Signs Date Time Temp Pulse Resp B/P (MAP) Pulse Ox O2 Delivery O2 Flow Rate FiO2 07/16/17 15:02 97.9 07/16/17 11:49 92 14 97 Room Air 07/16/17 11:23 136/94 Status: improved Disposition: ADMITTED INPATIENT Condition: Serious Referrals: NON PHYSICIAN (PCP) Alfredo Baca M.D. Jul 16, 2017 15:00
[2017-07-16 15:15] LABS: APPEARANCE,URINE SLIGHTLY CLOUDY; KETONES,URINE NEGATIVE (NEGATIVE); LEUKOCYTE ESTERASE ,URINE 1+ (NEGATIVE); NITRITE,URINE NEGATIVE (NEGATIVE); PH,URINE 5 (4.5-8.0); PROTEIN,URINE 1+ (NEGATIVE); UROBILINOGEN,URINE NORMAL MG/DL (0.0-1.0)
[2017-07-16 15:26] LABS: BACTERIA,URINE FEW /HPF; MUCUS,URINE FEW /LPF (NONE/OCC); SQUAMOUS EPITHELIAL CELL,UR OCCASIONAL /LPF (NONE/OCC); WBC,URINE 0-2 /HPF (0 - 2)
--- NOTE | 2017-07-16 17:25 | Cardiology Progress Note ---
Assessment/Plan Assessment/Plan The patient is seen and examined, full consult note will be dictated. Objective Last 24 Hour Vital Signs Date Time Temp Pulse Resp B/P (MAP) Pulse Ox O2 Delivery O2 Flow Rate FiO2 07/16/17 15:02 97.9 07/16/17 15:02 97.9 07/16/17 11:49 92 14 97 Room Air 07/16/17 11:23 20 Room Air 07/16/17 11:23 97.9 21 136/94 96 Room Air 07/16/17 11:10 97.9 100 21 136/94 96 Room Air Intake and Output 07/16/17 07/17/17 19:00 07:00 Intake Total 0 ml Balance 0 ml Intake Oral 0 ml Laboratory Tests Test 07/16/17 11:55 07/16/17 14:40 07/16/17 16:17 White Blood Count 8.2 K/UL (4.8-10.8) Red Blood Count 4.28 M/UL (4.20-5.40) Hemoglobin 13.2 G/DL (12.0-16.0) Hematocrit 41.0 % (37.0-47.0) Mean Corpuscular Volume 96 FL (80-99) Mean Corpuscular Hemoglobin 30.8 PG (27.0-31.0) Mean Corpuscular Hemoglobin Concent 32.1 G/DL (32.0-36.0) Red Cell Distribution Width 11.4 % (11.6-14.8) L Platelet Count 361 K/UL (150-450) Mean Platelet Volume 6.8 FL (6.5-10.1) Neutrophils (%) (Auto) 62.3 % (45.0-75.0) Lymphocytes (%) (Auto) 24.7 % (20.0-45.0) Monocytes (%) (Auto) 4.5 % (1.0-10.0) Eosinophils (%) (Auto) 7.1 % (0.0-3.0) H Basophils (%) (Auto) 1.4 % (0.0-2.0) Prothrombin Time 10.0 SEC (9.30-11.50) Prothromb Time International Ratio 1.0 (0.9-1.1) Activated Partial Thromboplast Time 24 SEC (23-33) Sodium Level 135 MMOL/L (136-145) L Potassium Level 3.8 MMOL/L (3.5-5.1) Chloride Level 101 MMOL/L (98-107) Carbon Dioxide Level 26 MMOL/L (21-32) Anion Gap 9 mmol/L (5-15) Blood Urea Nitrogen 11 mg/dL (7-18) Creatinine 1.0 MG/DL (0.55-1.30) Estimat Glomerular Filtration Rate > 60 mL/min (>60) Glucose Level 163 MG/DL (74-106) H Lactic Acid Level 3.50 mmol/L (0.66-2.22) H 2.30 mmol/L (0.66-2.22) H Calcium Level 9.2 MG/DL (8.5-10.1) Total Bilirubin 0.4 MG/DL (0.2-1.0) Aspartate Amino Transf (AST/SGOT) 21 U/L (15-37) Alanine Aminotransferase (ALT/SGPT) 28 U/L (12-78) Alkaline Phosphatase 143 U/L (46-116) H Total Creatine Kinase 103 U/L (26-308) Pro-B-Type Natriuretic Peptide 27 pg/mL (0-125) Total Protein 7.5 G/DL (6.4-8.2) Albumin 3.0 G/DL (3.4-5.0) L Globulin 4.5 g/dL Albumin/Globulin Ratio 0.7 (1.0-2.7) L Urine Color Yellow Urine Appearance Slightly cloudy Urine pH 5 (4.5-8.0) Urine Specific [place] 1.025 (1.005-1.035) Urine Protein 1+ (NEGATIVE) H Urine Glucose (UA) Negative (NEGATIVE) Urine Ketones Negative (NEGATIVE) Urine Occult Blood 1+ (NEGATIVE) H Urine Nitrite Negative (NEGATIVE) Urine Bilirubin Negative (NEGATIVE) Urine Urobilinogen Normal MG/DL (0.0-1.0) Urine Leukocyte Esterase 1+ (NEGATIVE) H Urine RBC 2-4 /HPF (0 - 2) H Urine WBC 0-2 /HPF (0 - 2) Urine Squamous Epithelial Cells Occasional /LPF Urine Bacteria Few /HPF (NONE) Urine Mucus Few /LPF (NONE/OCC) H Microbiology Date/Time Source Procedure Growth Status 07/16/17 11:55 Nasal Nares Influenza Types A,B Antigen (DOMINIC) - Final Complete VIRGIL,PAUL Jul 16, 2017 17:25
[2017-07-16 20:00] VITALS: BP 136/94
[2017-07-16 21:00] VITALS: BP 133/90
[2017-07-16 21:55] VITALS: BP 136/90
[2017-07-16 22:37] VITALS: BP 143/90
[2017-07-16] MEDS ORDERED: Albuterol/Ipratropium 3ml neb HHN PRN (23:45)
[2017-07-16] MEDS: HYDROmorphone 1mg/ml Carpuject IVP PRN (23:48)
[2017-07-17] VITALS (7 sets, daily range): BP systolic 119–142; BP diastolic 74–92
[2017-07-17 05:08] LABS: BASOPHILS % (AUTO) 1.4 % (0.0-2.0); EOSINOPHILS % (AUTO) 6.5 % (0.0-3.0); LYMPHOCYTES % (AUTO) 29.4 % (20.0-45.0); MEAN CORPUSCULAR HEMOGLOBIN 33.6 PG (27.0-31.0); MEAN CORPUSCULAR HGB CONC 34.9 G/DL (32.0-36.0); MEAN CORPUSCULAR VOLUME 96 FL (80-99); MEAN PLATELET VOLUME 6.8 FL (6.5-10.1); MONOCYTES % (AUTO) 5.2 % (1.0-10.0); NEUTROPHILS % (AUTO) 57.5 % (45.0-75.0); PLATELET COUNT 323 K/UL (150-450); RED BLOOD COUNT 3.58 M/UL (4.20-5.40); RED CELL DISTRIBUTION WIDTH 11.8 % (11.6-14.8); WHITE BLOOD COUNT 8.5 K/UL (4.8-10.8)
[2017-07-17 05:31] LABS: HEMOGLOBIN A1C 7.7 % (4.3-6.0)
[2017-07-17 05:34] LABS: ALANINE AMINOTRANSFERASE 26 U/L (12-78); ALBUMIN/GLOBULIN RATIO 0.7 (1.0-2.7); ANION GAP 11 mmol/L (5-15); ASPARTATE AMINO TRANSFERASE 17 U/L (15-37); CALCIUM 8.7 MG/DL (8.5-10.1); CARBON DIOXIDE 23 MMOL/L (21-32); CHLORIDE 105 MMOL/L (98-107); CHOLESTEROL 174 MG/DL (< 200); CREATININE 1.1 MG/DL (0.55-1.30); GLOMERULAR FILTRATION RATE > 60 mL/min (>60); POTASSIUM 3.7 MMOL/L (3.5-5.1); SODIUM 139 MMOL/L (136-145); THYROID STIMULATING HORMONE 3.509 uiU/mL (0.358-3.740)
[2017-07-17] MEDS: HYDROmorphone 1mg/ml Carpuject IVP PRN (05:55)
[2017-07-17] MEDS ORDERED: Heparin 5000 units/ml inj SUBQ SCH (09:00)
[2017-07-17] MEDS ORDERED: Vitamin D 1000 IU Tab ORAL SCH (09:00)
[2017-07-17] MEDS ORDERED: Solu-MEDROL 125mg Inj IVP SCH (09:00)
[2017-07-17] MEDS ORDERED: Aspirin Baby 81mg ORAL SCH (09:00)
--- NOTE | 2017-07-17 09:09 | Diagnostic Imaging Report ---
Indication: CP Technique: CT angiography performed utilizing thin section spiral CT and bolus contrast injection. Axial, coronal, and sagittal images were generated. Maximum intensity projections (MIPs) were obtained in the coronal and sagittal planes. Dose: Total Dose Length Product - DLP [address] Dose Index - CTDIvol(s) 12.62, 49.79 mGy. Automated exposure control was utilized for dose reduction. Findings: Study is suboptimal due to patient body habitus. Mediastinum is unremarkable. Aorta is normal in caliber. There is no evidence of aortic dissection. The remainder the mediastinum is normal. There is no evidence of right heart strain. Heart is normal in size. The pulmonary arteries appear normal. There are no pulmonary emboli. The extreme bases have been cut off the study. Demonstrated portion of the lung parenchyma is unremarkable. There is no pleural fluid. The liver is diffusely low density. Impression: No evidence of pulmonary emboli or aortic dissection. Fatty liver. Aces and lungs cannot be evaluated as they have not been scan. Otherwise negative. The above report is concordant with preliminary reading by [employer] . The CT scanner at [facility] is accredited by the [employer] and the scans are performed using protocols designed to limit radiation exposure to as low as reasonably achievable to attain images of sufficient resolution adequate for diagnostic evaluation.
--- NOTE | 2017-07-17 09:14 | History & Physical ---
History and Physical History & Physicial seen and examined. Dict completed Ayse Madrid MD Jul 17, 2017 09:14
[2017-07-17] MEDS ORDERED: Ketorolac 30mg Inj IV PRN ×2 (09:45→11:00)
--- NOTE | 2017-07-17 10:16 | Diagnostic Imaging Report ---
Indication: The spleen Technique: Chest, one view Comparison: 07/01/2017. Findings: The cardiomediastinal silhouette is normal. The lungs are clear. There is no evidence of pleural fluid. The bones are unremarkable. Impression: Normal chest.
[2017-07-17] MEDS ORDERED: Azithromycin 500 MG in D5W 275 ML IV SCH (10:30)
[2017-07-17] MEDS ORDERED: metFORMIN 500mg tab ORAL SCH (11:30)
[2017-07-17] MEDS ORDERED: NovoLOG Insulin Flexpen SUBQ SCH (11:50)
[2017-07-17] MEDS ORDERED: cefTRIAXone 1 GM in D5W 55 ML IVPB SCH (12:00)
--- NOTE | 2017-07-17 12:00 | Consultation ---
History of Present Illness General Date patient seen: Jul 17, 2017 Chief Complaint: Chest Pain Referring physician: DR Madrid Present Illness HPI 46 year old female with hx of Morbid obesity, DM, Asthma presented to ER with sternal chest pain for a few days and wheezing. She's felt feverish. Has a mildly productive cough. Some yellow phlegm. Pleuritic and also constant, sharp and some pressure. Not radiate. Her CT angio in ER ruled out any PE. She is admitted to telemetry for further work up. Allergies: Coded Allergies: MORPHINE (Verified Allergy, Unknown, 03/05/16) PENICILLINS (Unverified Allergy, Unknown, 03/05/16) Uncoded Allergies: PENICILLIN (Allergy, Intermediate, 02/15/16) Medication History Scheduled Albuterol Sulfate* (Albuterol Sulfate Mdi*), 2 PUFF INH Q4H, (Reported) Cholecalciferol (Vitamin D3)* (Vitamin D*), 1,000 UNIT ORAL DAILY, (Reported) Iron (Iron), 18 MG PO THREE TIMES A DAY, (Reported) Pantoprazole Sodium (Protonix), 20 MG ORAL DAILY, (Reported) Patient History Healthcare decision maker N Resuscitation status Full Code Advanced Directive on File Past Medical/Surgical History Past Medical/Surgical History: (1) Diabetes mellitus (2) Asthma Review of Systems All Other Systems: negative except mentioned in HPI Physical Exam General Appearance: WD/WN, morbidly obese Lines, tubes and drains: peripheral, central line HEENT: normocephalic, atraumatic Neck: non-tender, normal alignment Respiratory/Chest: chest wall non-tender, lungs clear Abdomen: normal bowel sounds, non tender Last 24 Hour Vital Signs Date Time Temp Pulse Resp B/P (MAP) Pulse Ox O2 Delivery O2 Flow Rate FiO2 07/17/17 11:17 97.7 07/17/17 08:00 97.7 94 20 119/74 96 07/17/17 08:00 92 07/17/17 04:32 98.2 95 18 139/84 97 Room Air 07/17/17 04:00 96 07/17/17 00:40 97.3 76 18 129/74 96 Room Air 07/17/17 00:00 110 07/16/17 22:37 97.1 105 18 143/90 94 Room Air 07/16/17 22:19 102 07/16/17 22:00 98.1 92 15 136/90 97 Room Air 07/16/17 21:55 98.1 92 15 136/90 97 Room Air 07/16/17 21:00 97.9 88 16 133/90 98 Room Air 07/16/17 20:00 97.9 90 14 136/94 98 Room Air 07/16/17 15:02 97.9 07/16/17 15:02 97.9 Intake and Output 07/17/17 07/18/17 19:00 07:00 # Bowel Movements 1 Laboratory Tests Test 07/16/17 14:40 07/16/17 16:17 07/16/17 18:42 07/17/17 03:45 Urine Color Yellow Urine Appearance Slightly cloudy Urine pH 5 (4.5-8.0) Urine Specific Show Low 1.025 (1.005-1.035) Urine Protein 1+ (NEGATIVE) H Urine Glucose (UA) Negative (NEGATIVE) Urine Ketones Negative (NEGATIVE) Urine Occult Blood 1+ (NEGATIVE) H Urine Nitrite Negative (NEGATIVE) Urine Bilirubin Negative (NEGATIVE) Urine Urobilinogen Normal MG/DL (0.0-1.0) Urine Leukocyte Esterase 1+ (NEGATIVE) H Urine RBC 2-4 /HPF (0 - 2) H Urine WBC 0-2 /HPF (0 - 2) Urine Squamous Epithelial Cells Occasional /LPF Urine Bacteria Few /HPF (NONE) Urine Mucus Few /LPF (NONE/OCC) H Lactic Acid Level 2.30 mmol/L (0.66-2.22) H Troponin I 0.000 ng/mL (0.000-0.056) < 0.017 ng/mL (0.000-0.056) White Blood Count 8.5 K/UL (4.8-10.8) Red Blood Count 3.58 M/UL (4.20-5.40) L Hemoglobin 12.0 G/DL (12.0-16.0) Hematocrit 34.5 % (37.0-47.0) L Mean Corpuscular Volume 96 FL (80-99) Mean Corpuscular Hemoglobin 33.6 PG (27.0-31.0) H Mean Corpuscular Hemoglobin Concent 34.9 G/DL (32.0-36.0) Red Cell Distribution Width 11.8 % (11.6-14.8) Platelet Count 323 K/UL (150-450) Mean Platelet Volume 6.8 FL (6.5-10.1) Neutrophils (%) (Auto) 57.5 % (45.0-75.0) Lymphocytes (%) (Auto) 29.4 % (20.0-45.0) Monocytes (%) (Auto) 5.2 % (1.0-10.0) Eosinophils (%) (Auto) 6.5 % (0.0-3.0) H Basophils (%) (Auto) 1.4 % (0.0-2.0) Sodium Level 139 MMOL/L (136-145) Potassium Level 3.7 MMOL/L (3.5-5.1) Chloride Level 105 MMOL/L (98-107) Carbon Dioxide Level 23 MMOL/L (21-32) Anion Gap 11 mmol/L (5-15) Blood Urea Nitrogen 12 mg/dL (7-18) Creatinine 1.1 MG/DL (0.55-1.30) Estimat Glomerular Filtration Rate > 60 mL/min (>60) Glucose Level 182 MG/DL (74-106) H Hemoglobin A1c 7.7 % (4.3-6.0) H Calcium Level 8.7 MG/DL (8.5-10.1) Total Bilirubin 0.3 MG/DL (0.2-1.0) Aspartate Amino Transf (AST/SGOT) 17 U/L (15-37) Alanine Aminotransferase (ALT/SGPT) 26 U/L (12-78) Alkaline Phosphatase 130 U/L (46-116) H Pro-B-Type Natriuretic Peptide 19 pg/mL (0-125) Total Protein 7.0 G/DL (6.4-8.2) Albumin 2.9 G/DL (3.4-5.0) L Globulin 4.1 g/dL Albumin/Globulin Ratio 0.7 (1.0-2.7) L Triglycerides Level 212 MG/DL (30-150) H Cholesterol Level 174 MG/DL (< 200) LDL Cholesterol 118 mg/dL (<100) H HDL Cholesterol 29 MG/DL (40-60) L Cholesterol/HDL Ratio 6.0 (3.3-4.4) H Thyroid Stimulating Hormone (TSH) 3.509 uiU/mL (0.358-3.740) Height (Feet): 5 Height (Inches): 5.00 Weight (Pounds): 403 Medications Current Medications Medications (Trade) Dose Ordered Sig/Eliana Route PRN Reason Start Time Stop Time Status Last Admin Dose Admin Acetaminophen (Tylenol) 650 mg Q6H PRN ORAL Mild Pain/Temp > 100.5 07/16/17 23:00 08/15/17 22:59 Albuterol/ Ipratropium (Albuterol/ Ipratropium) 3 ml Q4H PRN HHN Shortness of Breath 07/16/17 23:45 07/21/17 23:44 Aspirin (ASA) 81 mg DAILY ORAL 07/17/17 09:00 08/16/17 08:59 07/17/17 08:24 Azithromycin 500 mg/Dextrose 275 ml @ 275 mls/hr DAILY IV 07/17/17 10:30 07/23/17 09:59 07/17/17 10:47 Dextrose (Dextrose 50%) STAT PRN IV Hypoglycemia 07/17/17 09:30 08/16/17 09:29 Ferrous Sulfate (Feosol) 325 mg DAILY ORAL 07/17/17 12:00 08/16/17 11:59 Heparin Sodium (Porcine) (Heparin 5000 units/ml) 5,000 units EVERY 12 HOURS SUBQ 07/17/17 09:00 08/16/17 08:59 07/17/17 08:24 Insulin Aspart (NovoLOG) BEFORE MEALS AND HS SUBQ 07/17/17 11:30 08/16/17 11:29 Insulin Aspart (NovoLOG) 2 units NOVOTIAC SUBQ 07/17/17 11:50 08/16/17 11:49 Ketorolac Tromethamine (Toradol 30mg) 30 mg BID PRN IV Severe Pain (Pain Scale 7-10) 07/17/17 11:00 07/22/17 10:59 07/17/17 10:47 Metformin HCl (Glucophage) 500 mg TIAC ORAL 07/17/17 11:30 08/16/17 11:29 Methylprednisolone Sodium Succinate (Solu-MEDROL) 60 mg DAILY IVP 07/17/17 09:00 08/16/17 08:59 07/17/17 08:25 Pantoprazole (Protonix) 40 mg ACBREAKFAST ORAL 07/17/17 11:30 08/16/17 11:29 Vitamin D (Vitamin D) 1,000 intlu DAILY ORAL 07/17/17 09:00 08/16/17 08:59 07/17/17 08:21 Assessment/Plan Problem List: (1) Asthma exacerbation ICD Codes: J45.901 - Unspecified asthma with (acute) exacerbation SNOMED: 915278459 (2) Purulent bronchitis ICD Codes: J41.1 - Mucopurulent chronic bronchitis SNOMED: 67082833 (3) Diabetes mellitus ICD Codes: E11.9 - Type 2 diabetes mellitus without complications SNOMED: 45529736 Assessment/Plan respiratory treatment sputum for c/s IV steroids PIPPA PRAJAPATI Jul 17, 2017 12:00
[2017-07-17] MEDS: NovoLOG Insulin Flexpen SUBQ SCH ×5 (12:33→21:07)
[2017-07-17] MEDS ORDERED: Tubing IV Secondary IV ONE (16:17)
[2017-07-17] MEDS ORDERED: NS 500ML ONE (16:17)
--- NOTE | 2017-07-17 18:27 | Wound Care Consultation ---
Wound Assessment Wound Assessment : Wound Number: 1 Wound Present on Admission: Yes New Wound: No Status Change of Wound: No Wound Location Body Site Modif: mid Wound Type: incision Anjum Test: Does not Anjum Incisional Wounds: Sutured w/ Sergey Wound Thickness: Full Thickness Wound Drainage Amount: None Wound Drainage Odor: None/Absent Tissue Surrounding Wound: Erythemic Wound General Appearance: Sutures Intact Wound Comment #1 Surgical site on abdominal area intact no s/s of infection at this time Recommendation -Local wound care per MD order -Assess and f/u with MD for any changes -Optimize nutrition -Keep clean and dry ED GARZA RN Jul 17, 2017 18:27
[2017-07-17] MEDS ORDERED: Albuterol/Ipratropium 3ml neb HHN PRN (19:45)
--- NOTE | 2017-07-17 20:30 | History and Physical Report ---
DATE OF ADMISSION: 07/16/2017 SOURCE OF INFORMATION: The patient and EMR. HISTORY OF PRESENT ILLNESS: The patient is a 46-year-old female with prior history of asthma, who presented with episode of chest pain. Chest pain is reported in the precordial area with radiation to the neck and shoulders. The patient reported the pain is constant. The patient denies any fever or chills. The patient denies any palpitation. The patient also is complaining of pain in both lower extremities. ALLERGIES: To morphine and penicillin. PAST SURGICAL HISTORY: Cholecystectomy. MEDICATIONS: Current hospital medications reviewed including methylprednisolone 60 mg daily, Dilaudid 2 mg q.6 hours IV, and aspirin 81 mg daily. FAMILY HISTORY: Reviewed and noncontributory. SOCIAL HISTORY: The patient denies history of illicit drug abuse, history of smoking, or alcohol abuse. The patient has four children and lives with her . PHYSICAL EXAMINATION: VITAL SIGNS: Blood pressure 98/80, temperature 98.2, and pulse oximetry 92% on room air. HEAD AND NECK: Atraumatic, normocephalic. CHEST: Clear to auscultation. HEART: S1, S2. Regular rate and rhythm. ABDOMEN: Morbidly obese. Limited evaluation. NEUROLOGIC: The patient is awake, alert, and oriented x3. PSYCHIATRIC: Mood and affect is depressed. LABORATORY DATA: Laboratories dated 07/16/2017 shows WBC 8.2, hemoglobin 13.2, and platelets 261,000. Sodium 139, potassium 3.7, BUN 12, and creatinine 1.1. A1c 7.7. Lactic acid 2.3. Troponin x2 negative. LDL 118 and triglycerides 612. ASSESSMENT AND PLAN: 1. Atypical chest pain. 2. Anxiety, depression. 3. Asthma exacerbation. 4. Gastrointestinal and deep vein thrombosis prophylaxis. 5. Morbid obesity. 6. Diabetes type 2. PLAN OF CARE: The patient to continue with her home medication. The patient is at least at moderate risk for acute coronary syndrome. We will monitor the symptoms. We will start the patient on metformin and sliding-scale insulin. Ayse Madrid M.D. DR: ABDULAZIZ JOB#: [id number] CC: MARI
[2017-07-17] MEDS: Heparin 5000 units/ml inj SUBQ SCH (21:06)
[2017-07-18] VITALS: BP 124/86
[2017-07-18] MEDS: Ketorolac 30mg Inj IV PRN ×2 (01:14→22:38)
[2017-07-18 04:00] VITALS: BP 143/88
[2017-07-18] MEDS: NovoLOG Insulin Flexpen SUBQ SCH ×7 (05:51→21:02)
[2017-07-18 06:27] LABS: BASOPHILS % (AUTO) 0.8 % (0.0-2.0); EOSINOPHILS % (AUTO) 0.2 % (0.0-3.0); LYMPHOCYTES % (AUTO) 20.2 % (20.0-45.0); MEAN CORPUSCULAR HEMOGLOBIN 33.1 PG (27.0-31.0); MEAN CORPUSCULAR HGB CONC 34.8 G/DL (32.0-36.0); MEAN CORPUSCULAR VOLUME 95 FL (80-99); MEAN PLATELET VOLUME 6.7 FL (6.5-10.1); MONOCYTES % (AUTO) 3.8 % (1.0-10.0); PLATELET COUNT 351 K/UL (150-450); RED BLOOD COUNT 3.67 M/UL (4.20-5.40); RED CELL DISTRIBUTION WIDTH 11.3 % (11.6-14.8); WHITE BLOOD COUNT 11.4 K/UL (4.8-10.8)
[2017-07-18 06:47] LABS: ALANINE AMINOTRANSFERASE 28 U/L (12-78); ALBUMIN/GLOBULIN RATIO 0.7 (1.0-2.7); ANION GAP 8 mmol/L (5-15); ASPARTATE AMINO TRANSFERASE 17 U/L (15-37); CALCIUM 9.3 MG/DL (8.5-10.1); CARBON DIOXIDE 26 MMOL/L (21-32); CHLORIDE 104 MMOL/L (98-107); CREATININE 0.9 MG/DL (0.55-1.30); GLOMERULAR FILTRATION RATE > 60 mL/min (>60); POTASSIUM 3.9 MMOL/L (3.5-5.1); SODIUM 138 MMOL/L (136-145); TOTAL PROTEIN 7.1 G/DL (6.4-8.2)
[2017-07-18 08:00] VITALS: BP 124/73
[2017-07-18] MEDS: Vitamin D 1000 IU Tab ORAL SCH (09:51)
[2017-07-18] MEDS: Solu-MEDROL 125mg Inj IVP SCH (09:51)
[2017-07-18] MEDS: Aspirin Baby 81mg ORAL SCH (09:51)
[2017-07-18] MEDS: Heparin 5000 units/ml inj SUBQ SCH ×2 (09:52→21:04)
--- NOTE | 2017-07-18 10:57 | General Progress Note ---
Assessment/Plan Status: stable Assessment/Plan 1. Atypical chest pain. 2. Anxiety, depression. 3. Asthma exacerbation. 4. Gastrointestinal and deep vein thrombosis prophylaxis. 5. Morbid obesity. 6. Diabetes type 2. Plan: Ok to followup as o/p once ok by pulmonary Subjective ROS Limited/Unobtainable: No Constitutional: Reports: malaise HEENT: Reports: no symptoms Cardiovascular: Reports: no symptoms Respiratory: Reports: no symptoms Allergies: Coded Allergies: MORPHINE (Verified Allergy, Unknown, 03/05/16) PENICILLINS (Unverified Allergy, Unknown, 03/05/16) Objective Last 24 Hour Vital Signs Date Time Temp Pulse Resp B/P (MAP) Pulse Ox O2 Delivery O2 Flow Rate FiO2 07/18/17 08:00 97.5 90 19 124/73 97 Room Air 07/18/17 07:15 99 16 Room Air 21 07/18/17 04:00 97.7 95 21 143/88 96 07/18/17 01:44 98.3 07/18/17 00:00 98.1 97 20 124/86 95 07/18/17 00:00 Room Air 07/17/17 20:00 98.3 103 20 142/92 96 07/17/17 16:44 97.2 97 20 126/79 94 Room Air 07/17/17 16:00 100 07/17/17 16:00 97.7 100 21 122/83 96 07/17/17 12:00 97.7 90 21 128/86 94 07/17/17 12:00 94 07/17/17 11:17 97.7 Laboratory Tests 07/17/17 12:40: Troponin I 0.000 07/17/17 19:45: Troponin I 0.000 07/18/17 04:55: White Blood Count 11.4H, Red Blood Count 3.67L, Hemoglobin 12.2, Hematocrit 34.9L, Mean Corpuscular Volume 95, Mean Corpuscular Hemoglobin 33.1H, Mean Corpuscular Hemoglobin Concent 34.8, Red Cell Distribution Width 11.3L, Platelet Count 351, Mean Platelet Volume 6.7, Neutrophils (%) (Auto) 75.0, Lymphocytes (%) (Auto) 20.2, Monocytes (%) (Auto) 3.8, Eosinophils (%) (Auto) 0.2, Basophils (%) (Auto) 0.8, Sodium Level 138, Potassium Level 3.9, Chloride Level 104, Carbon Dioxide Level 26, Anion Gap 8, Blood Urea Nitrogen 14, Creatinine 0.9, Estimat Glomerular Filtration Rate > 60, Glucose Level 182H, Calcium Level 9.3, Total Bilirubin 0.3, Aspartate Amino Transf (AST/SGOT) 17, Alanine Aminotransferase (ALT/SGPT) 28, Alkaline Phosphatase 125H, Total Protein 7.1, Albumin 2.9L, Globulin 4.2, Albumin/Globulin Ratio 0.7L Height (Feet): 5 Height (Inches): 5.00 Weight (Pounds): 403 General Appearance: no apparent distress EENT: PERRL/EOMI Neck: supple Cardiovascular: normal rate Respiratory/Chest: rhonchi - bilaterally Abdomen: soft Extremities: non-tender Neurologic: director automotive II-XII grossly normal Ayse Madrid MD Jul 18, 2017 10:57
[2017-07-18 12:00] VITALS: BP 137/75
--- NOTE | 2017-07-18 14:55 | Pulmonology Progress Note ---
Assessment/Plan Problems: (1) Asthma exacerbation (2) Purulent bronchitis (3) Diabetes mellitus Assessment/Plan improving taper steroids check sputum dvt prophylaxis no sputum yet Subjective ROS Limited/Unobtainable: No Interval Events: c/o weakness Allergies: Coded Allergies: MORPHINE (Verified Allergy, Unknown, 03/05/16) PENICILLINS (Unverified Allergy, Unknown, 03/05/16) Uncoded Allergies: PENICILLIN (Allergy, Intermediate, 02/15/16) Objective Last 24 Hour Vital Signs Date Time Temp Pulse Resp B/P (MAP) Pulse Ox O2 Delivery O2 Flow Rate FiO2 07/18/17 12:00 97.4 87 18 137/75 97 07/18/17 08:00 97.5 90 19 124/73 97 Room Air 07/18/17 07:15 99 16 Room Air 21 07/18/17 04:00 97.7 95 21 143/88 96 07/18/17 01:44 98.3 07/18/17 00:00 98.1 97 20 124/86 95 07/18/17 00:00 Room Air 07/17/17 20:00 98.3 103 20 142/92 96 07/17/17 16:44 97.2 97 20 126/79 94 Room Air 07/17/17 16:00 100 07/17/17 16:00 97.7 100 21 122/83 96 Intake and Output 07/18/17 07/19/17 19:00 07:00 Intake Total 250 ml Balance 250 ml Intake Oral 250 ml # Voids 1 General Appearance: WD/WN HEENT: normocephalic, anicteric Respiratory/Chest: chest wall non-tender, lungs clear Cardiovascular: normal peripheral pulses, normal rate, no JVD Abdomen: normal bowel sounds, soft, non tender Genitourinary: normal external genitalia Extremities: no cyanosis Skin: no rash Microbiology Date/Time Source Procedure Growth Status 07/16/17 11:55 Nasal Nares Influenza Types A,B Antigen (DOMINIC) - Final Complete 07/16/17 22:30 Abdomen Gram Stain - Final Resulted 07/16/17 22:30 Abdomen Wound Culture - Preliminary Resulted Laboratory Tests 07/17/17 19:45: Troponin I 0.000 07/18/17 04:55: White Blood Count 11.4H, Red Blood Count 3.67L, Hemoglobin 12.2, Hematocrit 34.9L, Mean Corpuscular Volume 95, Mean Corpuscular Hemoglobin 33.1H, Mean Corpuscular Hemoglobin Concent 34.8, Red Cell Distribution Width 11.3L, Platelet Count 351, Mean Platelet Volume 6.7, Neutrophils (%) (Auto) 75.0, Lymphocytes (%) (Auto) 20.2, Monocytes (%) (Auto) 3.8, Eosinophils (%) (Auto) 0.2, Basophils (%) (Auto) 0.8, Sodium Level 138, Potassium Level 3.9, Chloride Level 104, Carbon Dioxide Level 26, Anion Gap 8, Blood Urea Nitrogen 14, Creatinine 0.9, Estimat Glomerular Filtration Rate > 60, Glucose Level 182H, Calcium Level 9.3, Total Bilirubin 0.3, Aspartate Amino Transf (AST/SGOT) 17, Alanine Aminotransferase (ALT/SGPT) 28, Alkaline Phosphatase 125H, Total Protein 7.1, Albumin 2.9L, Globulin 4.2, Albumin/Globulin Ratio 0.7L Current Medications Medications (Trade) Dose Ordered Sig/Eliana Route PRN Reason Start Time Stop Time Status Last Admin Dose Admin Acetaminophen (Tylenol) 650 mg Q6H PRN ORAL Mild Pain/Temp > 100.5 07/17/17 17:00 08/15/17 22:59 Albuterol/ Ipratropium (Albuterol/ Ipratropium) 3 ml Q4H PRN HHN Shortness of Breath 07/17/17 19:45 07/21/17 23:44 Aspirin (ASA) 81 mg DAILY ORAL 07/18/17 09:00 08/16/17 08:59 07/18/17 09:51 Dextrose (Dextrose 50%) STAT PRN IV Hypoglycemia 07/18/17 09:30 08/16/17 09:29 Ferrous Sulfate (Feosol) 325 mg DAILY ORAL 07/18/17 09:00 08/16/17 11:59 07/18/17 09:51 Heparin Sodium (Porcine) (Heparin 5000 units/ml) 5,000 units EVERY 12 HOURS SUBQ 07/17/17 21:00 08/16/17 08:59 07/18/17 09:52 Insulin Aspart (NovoLOG) BEFORE MEALS AND HS SUBQ 07/17/17 17:00 08/16/17 16:59 07/18/17 12:49 Insulin Aspart (NovoLOG) 2 units NOVOTIAC SUBQ 07/17/17 16:50 08/16/17 11:49 07/18/17 12:48 Ketorolac Tromethamine (Toradol 30mg) 30 mg BID PRN IV Severe Pain (Pain Scale 7-10) 07/17/17 18:00 07/22/17 10:59 07/18/17 01:14 Levofloxacin 100 ml @ 100 mls/hr Q24H IVPB 07/18/17 14:00 07/24/17 13:59 07/18/17 14:19 Methylprednisolone Sodium Succinate (Solu-MEDROL) 60 mg DAILY IVP 07/18/17 09:00 08/16/17 08:59 07/18/17 09:51 Pantoprazole (Protonix) 40 mg ACBREAKFAST ORAL 07/18/17 06:30 08/16/17 11:29 07/18/17 05:49 Vitamin D (Vitamin D) 1,000 intlu DAILY ORAL 07/18/17 09:00 08/16/17 08:59 07/18/17 09:51 PIPPA PRAJAPATI Jul 18, 2017 14:55
[2017-07-18] MEDS ORDERED: Albuterol/Ipratropium 3ml neb HHN ONE (15:30)
[2017-07-18 16:00] VITALS: BP 127/94
[2017-07-18] MEDS ORDERED: Tubing IV Secondary IV ONE (16:17)
[2017-07-18] MEDS ORDERED: NS 500ML ONE (16:17)
[2017-07-18] MEDS: Albuterol/Ipratropium 3ml neb HHN SCH ×2 (18:55→22:47)
[2017-07-18] MEDS ORDERED: Albuterol/Ipratropium 3ml neb HHN SCH (19:45)
[2017-07-18 20:00] VITALS: BP 153/74
[2017-07-19 00:36] VITALS: BP 148/70
[2017-07-19] MEDS: Albuterol/Ipratropium 3ml neb HHN SCH ×4 (04:11→14:41)
[2017-07-19 04:43] VITALS: BP 133/80
[2017-07-19] MEDS: NovoLOG Insulin Flexpen SUBQ SCH ×6 (06:05→16:50)
[2017-07-19 06:41] LABS: EOSINOPHILS % (AUTO) 0.1 % (0.0-3.0); LYMPHOCYTES % (AUTO) 22.7 % (20.0-45.0); MEAN CORPUSCULAR HEMOGLOBIN 33.4 PG (27.0-31.0); MEAN CORPUSCULAR HGB CONC 34.8 G/DL (32.0-36.0); MEAN CORPUSCULAR VOLUME 96 FL (80-99); MONOCYTES % (AUTO) 5.3 % (1.0-10.0); NEUTROPHILS % (AUTO) 70.8 % (45.0-75.0); PLATELET COUNT 315 K/UL (150-450); RED BLOOD COUNT 3.39 M/UL (4.20-5.40); RED CELL DISTRIBUTION WIDTH 11.7 % (11.6-14.8); WHITE BLOOD COUNT 10.8 K/UL (4.8-10.8)
[2017-07-19 07:17] LABS: ALANINE AMINOTRANSFERASE 25 U/L (12-78); ALBUMIN/GLOBULIN RATIO 0.8 (1.0-2.7); ANION GAP 9 mmol/L (5-15); ASPARTATE AMINO TRANSFERASE 15 U/L (15-37); CARBON DIOXIDE 25 MMOL/L (21-32); CHLORIDE 105 MMOL/L (98-107); GLOMERULAR FILTRATION RATE > 60 mL/min (>60); POTASSIUM 3.8 MMOL/L (3.5-5.1); SODIUM 139 MMOL/L (136-145); TOTAL PROTEIN 6.9 G/DL (6.4-8.2)
[2017-07-19 08:00] VITALS: BP 117/69
[2017-07-19] MEDS: Aspirin Baby 81mg ORAL SCH (08:27)
[2017-07-19] MEDS: Heparin 5000 units/ml inj SUBQ SCH (08:27)
[2017-07-19] MEDS: Solu-MEDROL 125mg Inj IVP SCH (08:27)
[2017-07-19] MEDS: Vitamin D 1000 IU Tab ORAL SCH (08:27)
[2017-07-19] MEDS: Ketorolac 30mg Inj IV PRN (11:33)
[2017-07-19 12:00] VITALS: BP 113/71
[2017-07-19 15:43] VITALS: BP 114/73
[2017-07-19] MEDS ORDERED: LEVOFLOXACIN500 MG ORAL (17:02)
[2017-07-19] MEDS ORDERED: PREDNISOLO15 MG/5 M1 ORAL (17:07)
--- NOTE | 2017-07-19 17:19 | Pulmonology Progress Note ---
Assessment/Plan Problems: (1) Asthma exacerbation (2) Purulent bronchitis (3) Diabetes mellitus Assessment/Plan improving taper steroids check sputum dvt prophylaxis no sputum yet Subjective ROS Limited/Unobtainable: No Allergies: Coded Allergies: MORPHINE (Verified Allergy, Unknown, 03/05/16) PENICILLINS (Unverified Allergy, Unknown, 03/05/16) Objective Last 24 Hour Vital Signs Date Time Temp Pulse Resp B/P (MAP) Pulse Ox O2 Delivery O2 Flow Rate FiO2 07/19/17 15:43 98.2 99 20 114/73 93 07/19/17 14:57 98 20 98 Room Air 21 07/19/17 14:43 86 18 99 Room Air 21 07/19/17 12:00 98.4 103 20 113/71 95 Room Air 07/19/17 10:59 91 20 98 Room Air 21 07/19/17 10:50 87 18 97 Room Air 21 07/19/17 08:07 87 20 99 Room Air 21 07/19/17 08:00 98.1 91 19 117/69 96 Room Air 07/19/17 07:57 88 20 99 Room Air 21 07/19/17 04:43 98.1 90 18 133/80 96 07/19/17 04:21 92 18 98 Room Air 21 07/19/17 04:10 89 18 95 Room Air 21 07/19/17 00:36 98.1 100 19 148/70 94 07/18/17 23:08 98.0 07/18/17 22:56 97 18 98 Room Air 21 07/18/17 22:47 91 18 94 Room Air 21 07/18/17 20:00 98.0 104 18 153/74 93 07/18/17 19:05 88 20 98 Room Air 21 07/18/17 18:55 85 18 97 Room Air Intake and Output 07/19/17 07/20/17 19:00 07:00 Intake Total 360 ml Balance 360 ml Intake Oral 360 ml # Voids 1 General Appearance: cachetic HEENT: normocephalic, atraumatic Respiratory/Chest: chest wall non-tender, lungs clear Breasts: no masses Cardiovascular: normal peripheral pulses Abdomen: normal bowel sounds, no organomegaly Genitourinary: normal external genitalia Extremities: no cyanosis Skin: no rash Microbiology Date/Time Source Procedure Growth Status 07/16/17 21:40 Nasal Nares MRSA Culture - Final NO METHICILLIN RESISTANT STAPH AUREUS... Complete 07/16/17 22:30 Abdomen Gram Stain - Final Resulted 07/16/17 22:30 Abdomen Wound Culture - Preliminary Resulted 07/16/17 21:40 Rectum VRE Culture - Final NO VANCOMYCIN RESISTANT ENTEROCOCCUS ... Complete Laboratory Tests 07/19/17 05:30: White Blood Count 10.8, Red Blood Count 3.39L, Hemoglobin 11.3L, Hematocrit 32.6L, Mean Corpuscular Volume 96, Mean Corpuscular Hemoglobin 33.4H, Mean Corpuscular Hemoglobin Concent 34.8, Red Cell Distribution Width 11.7, Platelet Count 315, Mean Platelet Volume 7.0, Neutrophils (%) (Auto) 70.8, Lymphocytes (% ) (Auto) 22.7, Monocytes (%) (Auto) 5.3, Eosinophils (%) (Auto) 0.1, Basophils ( %) (Auto) 1.0, Sodium Level 139, Potassium Level 3.8, Chloride Level 105, Carbon Dioxide Level 25, Anion Gap 9, Blood Urea Nitrogen 15, Creatinine 1.0, Estimat Glomerular Filtration Rate > 60, Glucose Level 178H, Calcium Level 9.0, Total Bilirubin 0.2, Aspartate Amino Transf (AST/SGOT) 15, Alanine Aminotransferase (ALT/SGPT) 25, Alkaline Phosphatase 113, Total Protein 6.9, Albumin 3.0L, Globulin 3.9, Albumin/Globulin Ratio 0.8L Current Medications Medications (Trade) Dose Ordered Sig/Eliana Route PRN Reason Start Time Stop Time Status Last Admin Dose Admin Acetaminophen (Tylenol) 650 mg Q6H PRN ORAL Mild Pain/Temp > 100.5 07/17/17 17:00 08/15/17 22:59 Albuterol/ Ipratropium (Albuterol/ Ipratropium) 3 ml Q4HRT HHN 07/18/17 19:00 07/23/17 18:59 07/19/17 14:41 Aspirin (ASA) 81 mg DAILY ORAL 07/18/17 09:00 08/16/17 08:59 07/19/17 08:27 Dextrose (Dextrose 50%) STAT PRN IV Hypoglycemia 07/18/17 09:30 08/16/17 09:29 Ferrous Sulfate (Feosol) 325 mg DAILY ORAL 07/18/17 09:00 08/16/17 11:59 07/19/17 08:27 Heparin Sodium (Porcine) (Heparin 5000 units/ml) 5,000 units EVERY 12 HOURS SUBQ 07/17/17 21:00 08/16/17 08:59 07/19/17 08:27 Insulin Aspart (NovoLOG) BEFORE MEALS AND HS SUBQ 07/17/17 17:00 08/16/17 16:59 07/19/17 16:50 Insulin Aspart (NovoLOG) 2 units NOVOTIAC SUBQ 07/17/17 16:50 08/16/17 11:49 07/19/17 16:49 Ketorolac Tromethamine (Toradol 30mg) 30 mg BID PRN IV Severe Pain (Pain Scale 7-10) 07/17/17 18:00 07/22/17 10:59 07/19/17 11:33 Levofloxacin 100 ml @ 100 mls/hr Q24H IVPB 07/18/17 14:00 07/24/17 13:59 07/19/17 13:48 Methylprednisolone Sodium Succinate (Solu-MEDROL) 60 mg DAILY IVP 07/18/17 09:00 08/16/17 08:59 07/19/17 08:27 Pantoprazole (Protonix) 40 mg ACBREAKFAST ORAL 07/18/17 06:30 08/16/17 11:29 07/19/17 05:31 Vitamin D (Vitamin D) 1,000 intlu DAILY ORAL 07/18/17 09:00 08/16/17 08:59 07/19/17 08:27 PIPPA PRAJAPATI Jul 19, 2017 17:19
--- NOTE | 2017-07-21 11:01 | Diagnostic Imaging Report ---
APPROVED REPORT CPT Code: 25545 Present Symptoms Comments: BLE Swelling BILATERAL: Imaging reveals a patent deep venous system bilaterally. There is no evidence of thrombus within the femoral, popliteal or tibial segments. The greater saphenous veins are also within normal limits. Doppler indicates normal spontaneous flow within these segments.
--- NOTE | 2017-07-21 11:04 | Cardiology Report ---
APPROVED REPORT EKG Measurement Heart [id number] Sinus tachycardia Otherwise normal ECG
--- NOTE | 2017-07-21 11:09 | Discharge Summary ---
Discharge Summary Hospital Course Date of Admission Jul 16, 2017 at 15:15 Date of Discharge Jul 19, 2017 at 18:13 Admitting Diagnosis Chest Pain HPI Lenora Blackman is a 46 year old female who was admitted on Jul 16, 2017 at 15: 15 for Chest Pain Hospital Course [id number] Discharge Discharge Disposition Patient was discharged to Home (01) Discharge Diagnoses: Lindsey Grimes NP Jul 21, 2017 11:09
--- NOTE | 2017-07-22 05:45 | Discharge Summary 2 SIG ---
DATE OF ADMISSION: 07/16/2017 DATE OF DISCHARGE: 07/19/2017 CONSULTANTS: 1. Jae Riley M.D. 2. Rudolph Salmon M.D. BRIEF HOSPITAL COURSE: The patient is a 46-year-old female with prior history of asthma, presented to ED complaining of chest pain. Chest pain was reported to be located at the precordial area with radiation to the neck and shoulder. Pain was described to be constant. Denies any fever or chills. No palpitations. She was also complaining of pain on both lower extremities. On evaluation at ED, she was given albuterol treatments. EKG was without any injury. Chest x-ray showed no infiltrates. Blood work with normal WBC, however, with eosinophilia and lactate was 3.5. She was started on antibiotics. She was also given pain medication. She was admitted to telemetry for evaluation of chest pain. She was seen by Dr. Riley. She was started on Solu-Medrol IV push 60 mg daily and was given respiratory treatment with Duo-Neb. Her blood glucose was monitored. She was given insulin sliding scale and metformin 500 mg before meals. Influenza A and B were negative. CTA of the chest was done and was negative for PE or aortic dissection. Venous duplex of lower extremity was negative for DVT bilaterally. She came in with a surgical site incision on the abdominal area. She was given wound care. Wound culture showed usual skin cora. Steroids were tapered. Troponin was monitored and was negative. Unable to collect a sputum for sample. She was eventually discharged home to follow up with PCP. FINAL DIAGNOSES: 1. Atypical chest pain. 2. Anxiety. 3. Depression. 4. Acute asthma exacerbation. 5. Morbid obesity. 6. Diabetes mellitus, type 2. DISPOSITION: The patient was discharged home. DISCHARGE INSTRUCTIONS: The patient to follow up with PMD in a week. Ayse Madrid M.D. I have been assigned to dictate discharge summary on this account and I was not involved in the patient's management. Lindsey Grimes N.P. DR: RAYRAY JOB#: [id number] CC: MARI
== END 2017-07-19 18:13 | disposition home or self-care (01) | DRG 141 ==
LOC: EMR 11:24 → 2E 15:15 → EDBEDREQ 17:02 → 3E 07-17 16:40
DX: J45.901 Unspecified asthma with (acute) exacerbation (principal); Z68.44 Body mass index [BMI] 60.0-69.9, adult; R07.89 Other chest pain; E66.01 Morbid (severe) obesity due to excess calories; J41.1 Mucopurulent chronic bronchitis; E11.9 Type 2 diabetes mellitus without complications; Z88.6 Allergy status to analgesic agent; Z88.0 Allergy status to penicillin; F41.8 Other specified anxiety disorders
CPT/HCPCS: 36415; 71010; 71275; 80053; 80061; 81003; 82550; 82962; 83036; 83605; 83880; 84443; 84484; 85025; 85610; 85730; 86710; 87070; 87081; 87205; 93005; 93970; 94640; 94664; 99285; J1815; J2405; J7620

== ENCOUNTER 2017-08-11 12:20 | Emergency (ER) | payer OTHER ==
[~2017-08-11] VITALS: Ht 165.1 cm; Wt 158.8 kg
[~2017-08-11 12:20] MED LIST changes: +IRON18 M1 PO; +LEVOFLOXACIN500 MG ORAL; +PREDNISOLO15 MG/5 M1 ORAL; +VITAMIN D1000 UNI1 ORAL
[2017-08-11 12:43] VITALS: BP 129/88
[2017-08-11] MEDS ORDERED: LORazepam 0.5mg tab ORAL ONE (12:45)
--- NOTE | 2017-08-11 12:56 | Emergency Room Report ---
History of Present Illness General Chief Complaint: Dyspnea/Respdistress Source: Patient Present Illness HPI 46-year-old female with known asthma presents with shortness of breath and cough since yesterday. Used home nebulizer prior to arrival. Denies fever or chills or chest pain. Denies myalgias Patient was admitted 2 weeks ago also for similar complaint, had normal CT chest. On discharge paper work thought that shortness of breath might partially be due to anxiety Allergies: Coded Allergies: MORPHINE (Verified Allergy, Unknown, 03/05/16) PENICILLINS (Unverified Allergy, Unknown, 03/05/16) Patient History Past Medical History: asthma Past Surgical History: none Pertinent Family History: none Social History: Denies: smoking, alcohol use, drug use Now: No Immunizations: UTD Reviewed Nursing Documentation: PMH: Agreed, PSxH: Agreed Nursing Documentation-PMH Past Medical History: No History, Except For Hx Hypertension: No Hx Pacemaker: No Hx Asthma: Yes Hx COPD: No Hx Diabetes: Yes Hx Cancer: No Hx Gastrointestinal Problems: No Hx Dialysis: No Hx Neurological Problems: No Hx Cerebrovascular Accident: No Hx Seizures: No Review of Systems All Other Systems: negative except mentioned in HPI Physical Exam Vital Signs Date Time Temp Pulse Resp B/P (MAP) Pulse Ox O2 Delivery O2 Flow Rate FiO2 08/11/17 12:38 97.2 109 22 129/88 99 Room Air Sp02 EP Interpretation: reviewed, normal General Appearance: normal inspection, well appearing, no apparent distress, alert, GCS 15, non-toxic, obese Head: normocephalic, atraumatic Eyes: bilateral eye PERRL, bilateral eye EOMI ENT: normal ENT inspection, hearing grossly normal, normal pharynx, no angioedema, normal voice, TMs + canals normal, uvula midline, moist mucus membranes Neck: normal inspection, full range of motion, supple, thyroid normal, no meningismus, no bony tend Respiratory: normal inspection, lungs clear, normal breath sounds, no rhonchi, no respiratory distress, no retraction, no accessory muscle use, no wheezing, speaking full sentences Cardiovascular #1: regular rate, rhythm, no edema, no JVD, normal capillary refill Gastrointestinal: normal inspection, normal bowel sounds, non tender, soft, no mass, no peritonitis, non-distended, no guarding, no hernia, no pulsatile mass Genitourinary: no CVA tenderness Musculoskeletal: normal inspection, back normal, normal range of motion, no calf tenderness, pelvis stable, Tanya's Sign negative Neurologic: normal inspection, alert, oriented x3, responsive, card folder III-XII nml as tested, motor strength/tone normal, cerebellar normal, normal gait, speech normal Psychiatric: normal inspection, judgement/insight normal, mood/affect normal, no suicidal/homicidal ideation, no delusions Skin: normal inspection, normal color, no rash Lymphatic: normal inspection, no adenopathy Medical Decision Making Diagnostic Impression: Primary Impression: Dyspnea Qualified Codes: R06.00 - Dyspnea, unspecified Additional Impression: Anxiety ER Course Mild tachycardia likely due to home nebulizer use prior to arrival Otherwise not tachypneic or hypoxic on exam Lungs clear to auscultation and Patient not having asthma exacerbation Well-appearing, no signs of sepsis or pneumonia I doubt an other acute pathology given an CT chest was normal 2 weeks prior Significant component of anxiety Was given low-dose oral Ativan with improvement ER course: Patient has remained stable during ED stay. Disposition: Patient is to be discharged to home. Prescriptions given are ativan Patient is instructed to follow up with their primary care doctor within 5 days. Strict return precautions discussed with patient such as fever, chills, worsening/severe pain, nausea, vomiting, which may indicate severe illness. Patient verbalizes understanding and agrees with plan. Please note that this Emergency Department Report was dictated using vitalclipdoor installer technology software, occasionally this can lead to erroneous entry secondary to interpretation by the dictation equipment Rhythm Strip Diag. Results EP Interpretation: yes Rate: 106 Rhythm: NSR, no PVC's, no ectopy Last Vital Signs Date Time Temp Pulse Resp B/P (MAP) Pulse Ox O2 Delivery O2 Flow Rate FiO2 08/11/17 12:43 109 22 Room Air 08/11/17 12:43 97.2 129/88 99 Status: improved Disposition: HOME, SELF-CARE Scripts Lorazepam* (ATIVAN*) 0.5 Mg Tablet 0.5 MG ORAL once daily for anxiety for 7 Days, #10 TAB Prov: BIA KRUSE M.D. 08/11/17 BIA KRUSE M.D. Aug 11, 2017 12:56
[2017-08-11] MEDS ORDERED: ATIVAN0.5 MG ORAL ×2 (12:57→13:30)
[2017-08-11 13:27] VITALS: BP 112/78
[2017-08-11 13:36] VITALS: BP 112/78
== END 2017-08-11 13:18 | disposition home or self-care (01) ==
LOC: EMR 13:18
DX: R06.00 Dyspnea, unspecified (principal); F41.9 Anxiety disorder, unspecified; E11.9 Type 2 diabetes mellitus without complications; J45.909 Unspecified asthma, uncomplicated; Z88.0 Allergy status to penicillin; Z88.6 Allergy status to analgesic agent
CPT/HCPCS: 99283

== ENCOUNTER 2018-01-23 17:22 | Emergency (ER) | payer OTHER ==
[~2018-01-23] VITALS: Ht 165.1 cm; Wt 136.1 kg
[~2018-01-23 17:22] MED LIST changes: +ATIVAN0.5 MG ORAL
[2018-01-23 17:46] VITALS: BP 153/90
[2018-01-23] MEDS ORDERED: Furosemide 40mg tab ORAL ONE (18:00)
[2018-01-23] MEDS ORDERED: FUROSEMIDE40 MG ORAL (18:39)
[2018-01-23 18:45] VITALS: BP 153/90
--- NOTE | 2018-01-23 19:00 | Emergency Room Report ---
History of Present Illness General Chief Complaint: Dyspnea/Respdistress Source: Patient Present Illness HPI Patient presents with complaints of shortness of breath reports that she was having a pleuritic pain to the upper mid chest area ongoing for the past several days Denies any vomiting denies any diarrhea Patient reports that she has noticed increased swelling in her legs as well Patient was previously on Lasix however has stopped taking water pills for the past month when her physician had told her Denies any recent travel denies any calf pain Denies any fevers or chills Allergies: Coded Allergies: MORPHINE (Verified Allergy, Unknown, 03/05/16) PENICILLINS (Unverified Allergy, Unknown, 03/05/16) Patient History Past Medical History: see triage record Pertinent Family History: none Reviewed Nursing Documentation: PMH: Agreed; PSxH: Agreed Nursing Documentation-PMH Past Medical History: No History, Except For Hx Hypertension: No Hx Pacemaker: No Hx Asthma: Yes Hx COPD: No Hx Diabetes: Yes Hx Cancer: No Hx Gastrointestinal Problems: No Hx Dialysis: No Hx Neurological Problems: No Hx Cerebrovascular Accident: No Hx Seizures: No Review of Systems All Other Systems: negative except mentioned in HPI Physical Exam Vital Signs Date Time Temp Pulse Resp B/P (MAP) Pulse Ox O2 Delivery O2 Flow Rate FiO2 01/23/18 17:36 90 19 01/23/18 17:46 Room Air 01/23/18 17:46 97.1 153/90 95 97.1 Sp02 EP Interpretation: reviewed, normal General Appearance: well appearing, no apparent distress, other - Morbidly obese Head: normocephalic, atraumatic Eyes: bilateral eye PERRL, bilateral eye EOMI ENT: hearing grossly normal, normal pharynx, TMs + canals normal, uvula midline Neck: full range of motion, supple, no meningismus, no bony tend Respiratory: lungs clear, normal breath sounds, no rhonchi, no respiratory distress, no retraction, no accessory muscle use Cardiovascular #1: normal peripheral pulses, regular rate, rhythm, no gallop, no JVD, no murmur Gastrointestinal: normal bowel sounds, non tender, soft, no mass, no organomegaly, non-distended, no guarding, no hernia, no pulsatile mass, no rebound Genitourinary: no CVA tenderness Musculoskeletal: normal inspection Neurologic: oriented x3, responsive, glove turner and former III-XII nml as tested, motor strength/ tone normal, sensory intact Psychiatric: mood/affect normal Skin: no rash, other - Patient appears to have dependent edema bilaterally Lymphatic: normal inspection, no adenopathy Medical Decision Making Diagnostic Impression: Primary Impression: pleurisy Additional Impression: Pedal edema ER Course Patient is a fairly complex patient with multiple differential to consideration including but not limited to cardiac cardiopulmonary and vascular emergencies Patient's review of symptoms reveals extensive workup for pulmonary embolism including CTA of the chest Patient at this time respirations are appropriate heart rate oxygenation appropriate Patient appears to have dependent edema bilaterally Morbid obesity possibly contributing to sleep apnea and other shortness of breath Patient's x-ray does not show any acute pathology patient remained hemodynamic stable At this time requires improved outpatient care EKG Diagnostic Results Rate: normal Rhythm: NSR ST Segments: no acute changes Rhythm Strip Diag. Results EP Interpretation: yes Rate: 77 Rhythm: NSR, no PVC's, no ectopy Chest X-Ray Diagnostic Results Chest X-Ray Diagnostic Results : Chest X-Ray Ordered: Yes # of Views/Limited/Complete: 1 View Indication: Chest Pain EP Interpretation: Yes Interpretation: no consolidation, no effusion, no pneumothorax Impression: No acute disease - Difficult exam, secondary to body habitus, however no acute change Electronically Signed by: Carlos Brenner DO Last Vital Signs Date Time Temp Pulse Resp B/P (MAP) Pulse Ox O2 Delivery O2 Flow Rate FiO2 01/23/18 17:46 97.1 93 35 153/90 95 Room Air 97.1 Status: improved Disposition: HOME, SELF-CARE Condition: Improved Scripts Furosemide* (LASIX*) 40 Mg Tablet 2 MG ORAL DAILY, #15 TAB Prov: Carlos Brenner DO 01/23/18 Patient Instructions: Pleurisy, [id number], Peripheral Edema Additional Instructions: Patient is provided with the discharge instructions notified to follow up with primary doctor in the next 2-3 days otherwise return to the er with any worsening symptoms. Please note that this report is being documented using [employer]data technology. This can lead to erroneous entry secondary to incorrect interpretation by the dictating instrument. Carlos Brenner DO Jan 23, 2018 19:00
--- NOTE | 2018-01-24 12:03 | Diagnostic Imaging Report ---
Indication: Shortness of breath Technique: One view of the chest Comparison: 07/16/2017 Findings: Lungs and pleural spaces are clear. Heart size is normal. No significant interim change Impression: No acute process
== END 2018-01-23 19:01 | disposition home or self-care (01) ==
LOC: EMR 18:57
DX: R09.1 Pleurisy (principal); R60.0 Localized edema; J45.909 Unspecified asthma, uncomplicated; E11.9 Type 2 diabetes mellitus without complications; Z88.0 Allergy status to penicillin; Z88.5 Allergy status to narcotic agent
CPT/HCPCS: 71045; 99283

== ENCOUNTER 2020-04-20 20:56 | Emergency (ER) | payer OTHER ==
[~2020-04-20] VITALS: Ht 165.1 cm; Wt 155.1 kg
[~2020-04-20 20:56] MED LIST changes: +FUROSEMIDE40 MG ORAL
[2020-04-20 21:00] VITALS: BP 140/86
--- NOTE | 2020-04-20 21:00 | NUR ---
ED Nurse Note: Walk-in patient with complaints of abdominal pain x 2 weeks. Patient reports gastric sleeve procedure in February and reports not having been the same since. Patient was seen in the ER for abdominal pain and was diagnosed with UTI but only treated in the ER setting and not sent home with antibiotics. Patient reports still being on liquid diet, soft to watery stool with blood in stool, dark red in color.
--- NOTE | 2020-04-20 21:25 | NUR ---
ED Nurse Note: IV started at left AC, 20G, patent with blood return. All sepsis blood specimen collected, urine collected and sent to lab.
[2020-04-20] MEDS ORDERED: DiphenhydrAMINE 50mg/ml Inj IVP ONE (21:45)
[2020-04-20] MEDS ORDERED: Omnipaque-300 100ml vial INJ PRN ×2 (21:45→22:45)
[2020-04-20] MEDS ORDERED: HYDROmorphone 1mg/ml Carpuject IVP ONE (21:45)
[2020-04-20] MEDS ORDERED: Metoclopramide 10mg/2ml Inj IVP ONE (21:45)
[2020-04-20] MEDS ORDERED: Pantoprazole Inj IV ONE (21:45)
[2020-04-20 22:05] LABS: BASOPHILS % (AUTO) 1.7 % (0.0-2.0); EOSINOPHILS % (AUTO) 2.5 % (0.0-3.0); HEMATOCRIT 43.5 % (37.0-47.0); HEMOGLOBIN 14.5 G/DL (12.0-16.0); MEAN CORPUSCULAR VOLUME 95 FL (80-99); MONOCYTES % (AUTO) 4.6 % (1.0-10.0); NEUTROPHILS % (AUTO) 42.2 % (45.0-75.0); PLATELET COUNT 295 K/UL (150-450); RED BLOOD COUNT 4.59 M/UL (4.20-5.40); RED CELL DISTRIBUTION WIDTH 13.2 % (11.6-14.8); WHITE BLOOD COUNT 6.6 K/UL (4.8-10.8)
[2020-04-20 22:08] LABS: ANION GAP 10 mmol/L (5-15); BLOOD UREA NITROGEN 5 mg/dL (7-18); CALCIUM 9.4 MG/DL (8.5-10.1); CARBON DIOXIDE 27 MMOL/L (21-32); CHLORIDE 103 MMOL/L (98-107); POTASSIUM 3.2 MMOL/L (3.5-5.1); SODIUM 140 MMOL/L (136-145)
[2020-04-20 22:09] LABS: APPEARANCE,URINE SLIGHTLY CLOUDY; BILIRUBIN, URINE NEGATIVE (NEGATIVE); GLUCOSE, URINE (UA) NEGATIVE (NEGATIVE); KETONES,URINE 1+ (NEGATIVE); LEUKOCYTE ESTERASE ,URINE 2+ (NEGATIVE); NITRITE,URINE NEGATIVE (NEGATIVE); PH,URINE 7 (4.5-8.0); PROTEIN,URINE 2+ (NEGATIVE); UROBILINOGEN,URINE 4 MG/DL (0.0-1.0)
[2020-04-20 22:11] LABS: COLOR,URINE YELLOW
[2020-04-20 22:18] LABS: ALANINE AMINOTRANSFERASE 44 U/L (12-78); ALBUMIN 3.6 G/DL (3.4-5.0); ALBUMIN/GLOBULIN RATIO 0.8 (1.0-2.7); ALKALINE PHOSPHATASE 153 U/L (46-116); AMYLASE 76 U/L (25-115); ASPARTATE AMINO TRANSFERASE 24 U/L (15-37); BILIRUBIN,TOTAL 0.8 MG/DL (0.2-1.0); CREATINE KINASE 80 U/L (26-308)
[2020-04-20 22:21] VITALS: BP 122/73
--- NOTE | 2020-04-20 22:33 | Emergency Room Report ---
History of Present Illness General Chief Complaint: Abdominal Pain Source: Patient Present Illness HPI Patient presents with abdominal pain. She feels it epigastric and also in the right upper quadrant. She is post cholecystectomy and on March 03 had gastric sleeve surgery. The pain has been there for a week. She was seen at another emergency department and told she had a mild UTI. They performed labs and a CT scan at that time. The patient's been vomiting clear material without any coffee grounds or blood. She is also been passing blood in her stool which is dark red that began about the time that the pain began. They told her to take Tylenol. The pain right now is 10/10 constant nonradiating. She denies dysuria. The pain is epigastric and right upper quadrant. No fevers, chills, sore throat, chest pain, palpitations, diarrhea, shortness of breath, joint pain, rashes, depression, anxiety, visual changes, dizziness, headache. The patient is status post cholecystectomy. Allergies: Coded Allergies: MORPHINE (Verified Allergy, Unknown, 03/05/16) PENICILLINS (Unverified Allergy, Unknown, 03/05/16) COVID-19 Screening Contact w/high risk pt: No Experienced COVID-19 symptoms?: Yes COVID-19 Testing performed RN PERIOPERATIVE: Yes - march 01 COVID-19 Screening: Negative COVID-19 COVID-19 Testing Source: [facility] Patient History Past Medical History: see triage record Past Surgical History: tino, other - Gastric sleeve surgery Social History: Denies: smoking, alcohol use, drug use Social History Narrative with daughter, not working Last Menstrual Period: n/a Reviewed Nursing Documentation: PMH: Agreed; PSxH: Agreed Nursing Documentation-PMH Past Medical History: No History, Except For Hx Hypertension: No Hx Pacemaker: No Hx Asthma: Yes Hx COPD: No Hx Diabetes: Yes Hx Cancer: No Hx Gastrointestinal Problems: No Hx Dialysis: No Hx Neurological Problems: No Hx Cerebrovascular Accident: No Hx Seizures: No Review of Systems All Other Systems: negative except mentioned in HPI Physical Exam Vital Signs Date Time Temp Pulse Resp B/P (MAP) Pulse Ox O2 Delivery O2 Flow Rate FiO2 04/20/20 21:00 98.8 86 18 140/86 (104) 98 Room Air Sp02 EP Interpretation: reviewed, normal General Appearance: no apparent distress, non-toxic, obese Head: normocephalic Eyes: bilateral eye normal inspection, bilateral eye PERRL, bilateral eye EOMI ENT: moist mucus membranes Neck: supple Respiratory: chest non-tender, lungs clear, normal breath sounds Cardiovascular #1: regular rate, rhythm Cardiovascular #2: 2+ radial (R) Gastrointestinal: no rebound, guarding - minimal RUQ, tenderness, overweight Rectal: heme positive stool - more hemrrhoidal Genitourinary: no CVA tenderness Musculoskeletal: back normal, normal range of motion, no calf tenderness Neurologic: alert, oriented x3, grossly normal Psychiatric: mood/affect normal Skin: no rash, warm/dry Medical Decision Making Diagnostic Impression: Primary Impression: Abdominal pain Qualified Codes: R10.13 - Epigastric pain Additional Impressions: Elevated lactic acid level UTI (urinary tract infection) Qualified Codes: N39.0 - Urinary tract infection, site not specified Hypokalemia Hypomagnesemia Bleeding hemorrhoid ER Course Patient presents post gastric sleeve surgery on March 03 with abdominal pain and passing blood per rectum. Differential is broad including peptic ulcer disease , gastritis, diverticulitis, perforation from surgical device, urinary tract infection, electrolyte imbalance amongst others. Patient evaluated with EKG, chest x-ray, CT of the abdomen and labs. Patient treated with gentle IV hydration at this time. Patient also administered dose of analgesia. She states there was a local reaction to morphine and therefore I doubt that she is allergic to this however Dilaudid will be used. Because of the history of GI bleeding Protonix is used. EKG normal. Chest x-ray increased adipose tissue. Labs with normal white count and hemoglobin. Labs with low potassium, low magnesium. Call with lactic acid being elevated. Antibiotics begun for pyuria. Because of the complexity of the patient CT was changed for oral and IV contrast. Initial 30 mill per kilogram bolus ordered. However this was due to her obese weight and the order was rearranged for ideal body weight. In addition potassium ordered along with magnesium. The blood looks more hemorrhoidal than diverticular or intermixed with stool. However rectal exam was guaiac positive. Patient was discussed with Dr. Josue who accepts the patient. CT of abdomen as below. Patient stable for transfer. Laboratory Tests Test 04/20/20 21:20 04/20/20 21:45 White Blood Count 6.6 K/UL (4.8-10.8) Red Blood Count 4.59 M/UL (4.20-5.40) Hemoglobin 14.5 G/DL (12.0-16.0) Hematocrit 43.5 % (37.0-47.0) Mean Corpuscular Volume 95 FL (80-99) Mean Corpuscular Hemoglobin 31.5 PG (27.0-31.0) H Mean Corpuscular Hemoglobin Concent 33.2 G/DL (32.0-36.0) Red Cell Distribution Width 13.2 % (11.6-14.8) Platelet Count 295 K/UL (150-450) Mean Platelet Volume 8.3 FL (6.5-10.1) Neutrophils (%) (Auto) 42.2 % (45.0-75.0) L Lymphocytes (%) (Auto) 49.0 % (20.0-45.0) H Monocytes (%) (Auto) 4.6 % (1.0-10.0) Eosinophils (%) (Auto) 2.5 % (0.0-3.0) Basophils (%) (Auto) 1.7 % (0.0-2.0) Prothrombin Time 11.4 SEC (9.30-11.50) Prothrombin Time INR 1.0 (0.9-1.1) Activated Partial Thromboplast Time 30 SEC (23-33) Urine Color Yellow Urine Appearance Slightly cloudy Urine pH 7 (4.5-8.0) Urine Specific Gay 1.010 (1.005-1.035) Urine Protein 2+ (NEGATIVE) H Urine Glucose (UA) Negative (NEGATIVE) Urine Ketones 1+ (NEGATIVE) H Urine Blood 3+ (NEGATIVE) H Urine Nitrite Negative (NEGATIVE) Urine Bilirubin Negative (NEGATIVE) Urine Urobilinogen 4 MG/DL (0.0-1.0) H Urine Leukocyte Esterase 2+ (NEGATIVE) H Urine RBC 5-10 /HPF (0 - 2) H Urine WBC 15-20 /HPF (0 - 2) H Urine Squamous Epithelial Cells Moderate /LPF (NONE/OCC) H Urine Amorphous Sediment Moderate /LPF (NONE) H Urine Bacteria Moderate /HPF (NONE) H Urine HCG, Qualitative Negative (NEGATIVE) Sodium Level 140 MMOL/L (136-145) Potassium Level 3.2 MMOL/L (3.5-5.1) L Chloride Level 103 MMOL/L (98-107) Carbon Dioxide Level 27 MMOL/L (21-32) Anion Gap 10 mmol/L (5-15) Blood Urea Nitrogen 5 mg/dL (7-18) L Creatinine 1.0 MG/DL (0.55-1.30) Estimated Glomerular Filtration Rate 59.4 mL/min (>60) Glucose Level 134 MG/DL (74-106) H Calcium Level 9.4 MG/DL (8.5-10.1) Magnesium Level 1.6 MG/DL (1.8-2.4) L Total Bilirubin 0.8 MG/DL (0.2-1.0) Aspartate Amino Transferase (AST) 24 U/L (15-37) Alanine Aminotransferase (ALT) 44 U/L (12-78) Alkaline Phosphatase 153 U/L (46-116) H Total Creatine Kinase 80 U/L (26-308) Troponin I 0.000 ng/mL (0.000-0.056) C-Reactive Protein, Quantitative 1.3 mg/dL (0.00-0.90) H Pro-B-Type Natriuretic Peptide 84 pg/mL (0-125) Total Protein 8.1 G/DL (6.4-8.2) Albumin 3.6 G/DL (3.4-5.0) Globulin 4.5 g/dL Albumin/Globulin Ratio 0.8 (1.0-2.7) L Amylase Level 76 U/L (25-115) Lipase 131 U/L (73-393) Lactic Acid Level 2.70 mmol/L (0.4-2.0) H Microbiology Date/Time Source Procedure Growth Status 04/20/20 21:20 Nasopharynx SARS-CoV-2 RdRp Gene Assay - Final Complete EKG Diagnostic Results Rate: normal Rhythm: NSR ST Segments: no acute changes Rhythm Strip Diag. Results EP Interpretation: yes Rhythm: NSR, no PVC's, no ectopy Chest X-Ray Diagnostic Results Chest X-Ray Diagnostic Results : Chest X-Ray Ordered: Yes # of Views/Limited/Complete: 1 View Indication: Other EP Interpretation: Yes Interpretation: no consolidation, no effusion, no pneumothorax Impression: No acute disease - obesity Electronically Signed by: Electronically signed by Alfredo Baca MD CT/MRI/US Diagnostic Results CT/MRI/US Diagnostic Results : Imaging Test Ordered: abdomen/pelvis Impression 1. No acute abnormality definitively identified to account for patient presentation. 2. Hepatic steatosis and possible steatohepatitis; consider outpatient MR or ultrasound elastography to quantify hepatic fibrosis. 3. Retained contrast in the esophagus could represent reflux or dysmotility. 4. Sleeve gastrectomy. 5. Cholecystectomy. Last Vital Signs Date Time Temp Pulse Resp B/P (MAP) Pulse Ox O2 Delivery O2 Flow Rate FiO2 04/21/20 03:50 98.8 77 18 117/71 98 Room Air 71 Status: improved Disposition: SHORT-TERM HOSP Condition: Serious Referrals: [facility],REFERRING (PCP) lAfredo Baca MD Apr 20, 2020 22:33
[2020-04-20] MEDS ORDERED: cefTRIAXone 1 GM in NS 55 ML IVPB ONE (22:45)
[2020-04-20] MEDS ORDERED: SODIUM CHLORIDE IVLG ONE (22:45)
--- NOTE | 2020-04-20 22:45 | NUR ---
ED Nurse Note: Patient started on actual weight fluids, antibiotics given as well.
--- NOTE | 2020-04-20 23:15 | NUR ---
ED Nurse Note: Patietn changed to ideal weight IV fluids, repeat lactic drawn, and magnesium started. Order for KCL changed to reflect availability of pyxis. Patient tolerated medication well. Will render report to alternate nurse for change of assignment.
[2020-04-20] MEDS ORDERED: LR 1000ml 1,000 ML IV SCH (23:30)
--- NOTE | 2020-04-20 23:30 | NUR ---
ED Nurse Note: Recieved report to resume care, pt in bed awake and alert, on cardiac monitoring, has patent IV line in left ac with magnesium infusing and 5 liter bags of NS not being infused and potassium to be infused, pt has ct-scan to be done also and waiting for ambulance ETA of 0100 for pt transfer, immediately called imaging for scan to be done, and placed secnd IV site in right ac for ordered meds, pt reports pain at 5/10, transfer fiorm signed and pt agrees with transfer, belonging list completed also, will continue to closely erika meraz waiting for transfer to another facility for continued care.
[2020-04-20 23:31] VITALS: BP 122/77
--- NOTE | 2020-04-20 23:34 | Diagnostic Imaging Report ---
EXAM: XR Chest, 1 View CLINICAL HISTORY: ABD PAIN TECHNIQUE: Frontal view of the chest. COMPARISON: No relevant prior studies available. FINDINGS: Lungs: Low lung volumes with bronchovascular crowding. No consolidation, pleural effusion, or pneumothorax. Pleural space: See above. Heart: Unremarkable. No cardiomegaly. Mediastinum: Unremarkable. Bones/joints: No acute abnormality IMPRESSION: 1. Low lung volumes with bronchovascular crowding. 2. Otherwise no acute cardiopulmonary disease. 3. If there is continued concern, recommend frontal and lateral chest radiographs or CT.
--- NOTE | 2020-04-21 | NUR ---
[facility]clarified that spoke with who accepted patient.
[2020-04-21 00:40] VITALS: BP 129/76
[2020-04-21] MEDS ORDERED: DiphenhydrAMINE 50mg/ml Inj IVP ONE (01:15)
[2020-04-21] MEDS ORDERED: HYDROmorphone 1mg/ml Carpuject IVP ONE (01:15)
--- NOTE | 2020-04-21 01:25 | NUR ---
ED Nurse Note: Pt returned form imaging, ambulated to bathroom, deneis active bleeding noted, pt assisted back to bed and gowned and re-placed on cardiac monitoring, pt continuing with ordered IV fluids and potassium IV, tolerating well, sites intact and patent, v/s stable, will re-medicate for pain as ordered and monitor for effectiveness or any acute chagnes.
--- NOTE | 2020-04-21 01:36 | Diagnostic Imaging Report ---
EXAM: CT Abdomen and Pelvis With Intravenous Contrast CLINICAL HISTORY: ABD PAIN TECHNIQUE: Axial computed tomography images of the abdomen and pelvis with intravenous contrast. CTDI is 19.00 mGy and DLP is 1050.00 mGy-cm. One or more of the following dose reduction techniques were used: automated exposure control, adjustment of the mA and/or kV according to patient size, use of iterative reconstruction technique. Coronal and sagittal reformatted images were created and reviewed. COMPARISON: 04/08/17 FINDINGS: Lung bases: Unremarkable. No mass. No consolidation. Mediastinum: Retained contrast in the esophagus could represent reflux or dysmotility. ABDOMEN: Liver: Hepatic steatosis and possible steatohepatitis; consider outpatient MR or ultrasound elastography to quantify hepatic fibrosis. Gallbladder and bile ducts: Cholecystectomy. No ductal dilation. Pancreas: Unremarkable. No mass. No ductal dilation. Spleen: Unremarkable. No splenomegaly. Adrenals: Unremarkable. No mass. Kidneys and ureters: Unremarkable. No solid mass. No hydronephrosis. Stomach and bowel: Sleeve gastrectomy. No obstruction. PELVIS: Appendix: No findings to suggest acute appendicitis. Bladder: Unremarkable. No mass. Reproductive: Unremarkable as visualized. ABDOMEN and PELVIS: Intraperitoneal space: Unremarkable. No free air. No significant fluid collection. Bones/joints: No acute fracture. No dislocation. Soft tissues: Unremarkable. Vasculature: Unremarkable. No abdominal aortic aneurysm. Lymph nodes: Unremarkable. No enlarged lymph nodes. IMPRESSION: 1. No acute abnormality definitively identified to account for patient presentation. 2. Hepatic steatosis and possible steatohepatitis; consider outpatient MR or ultrasound elastography to quantify hepatic fibrosis. 3. Retained contrast in the esophagus could represent reflux or dysmotility. 4. Sleeve gastrectomy. 5. Cholecystectomy.
[2020-04-21 02:05] VITALS: BP 119/74
--- NOTE | 2020-04-21 02:10 | NUR ---
[facility] called, transport delayed till 299.
[2020-04-21 03:15] VITALS: BP 117/71
--- NOTE | 2020-04-21 03:25 | NUR ---
ED Nurse Note: [facility] ambulance rig#[id number] has arrived for pt transport, report called isidoro Mcclendon,RN air cargo ground operations supervisor at [facility] at [phone], report given along with all pertinent info, bedside report and trandfer packet given to commercial relief driver Gerard, pt is awake, alert and oriented x 4, has all belongings, denies pain, IV site intact and patent, v/s stable, pt son is aware of transfer, was present, going home now, nad noted during pt transport.
[2020-04-21 03:50] VITALS: BP 117/71
--- NOTE | 2020-04-23 21:49 | Cardiology Report ---
APPROVED REPORT EKG Measurement Heart [id number] <Conclusion> Normal sinus rhythm Normal ECG
== END 2020-04-21 03:50 | disposition short-term general hospital (02) ==
LOC: EMR 21:35
DX: R10.13 Epigastric pain (principal); N39.0 Urinary tract infection, site not specified; E87.6 Hypokalemia; E83.42 Hypomagnesemia; K64.9 Unspecified hemorrhoids; E66.3 Overweight; Z68.43 Body mass index [BMI] 50.0-59.9, adult; R74.0 Nonspecific elevation of levels of transaminase and lactic acid dehydrogenase [LDH]; Z90.49 Acquired absence of other specified parts of digestive tract; E66.9 Obesity, unspecified
CPT/HCPCS: 36415; 71045; 74177; 80053; 81003; 81025; 82150; 82550; 83605; 83690; 83735; 83880; 84484; 85025; 85610; 85730; 86140; 86900; 86901; 87040; 87086; 93005; 96361; 96365; 96367; 96375; 96376; J0696; J1170; J1200; J2765; J3480; J7030; Q9965; S0164; U0002; Z7502; 99285